=== PATIENT | female | born 1995 | race Caucasian/White ===

== ENCOUNTER 2020-04-02 11:46 | Outpatient (REF) | payer MEDICAID, SELFPAY | END 2020-04-02 11:47 | disposition home or self-care (01) | LOC: HO.LAB 11:46 | PROVIDERS: Visit Provider Internal Medicine | DX: Z20.822 Contact with and (suspected) exposure to COVID-19 (principal) | CPT/HCPCS: 36415; C9803; U0003 ==

== ENCOUNTER 2024-08-08 11:51 | Emergency (ER) | payer MEDICAID, SELFPAY ==
--- NOTE | ~2024-08-08 | US_ITS ---
EXAMINATION: US OBSTETRICAL ULTRASOUND CLINICAL INFORMATION: Left-sided cramping, COMPARISON: Ultrasound of the 11/13/2019 LMP: Unknown. Gestational age by maternal dates is unknown. Estimated date of delivery by maternal dates is unknown. TECHNIQUE: Transabdominal imaging of pelvis is performed. FINDINGS: There is a single intrauterine gestational sac with visible yolk sac, embryo/fetus, and cardiac activity. There is no significant subchorionic hemorrhage or hematoma. HR: 160 beats per minute. CRL (crown rump length): 1.79 cm (8 weeks 2 days +/- 4 days). OSEAS (estimated date of delivery): 03/18/2025 +/- 4 days. MATERNAL ADNEXA: The right maternal ovary measures 3.6 x 2.3 x 2.2 cm. There is anechoic cyst 2.3 x 1.8 x 1.8 cm The left maternal ovary measures 2.7 x 2.2 x 1.8 cm. No focal lesion seen There is no significant maternal adnexal mass. No maternal pelvic ascites. US/US OB <= 14 weeks fetus IMPRESSION: 1. Single intrauterine gestation with ultrasound gestational age of 8 weeks 2 days +/- 4 days. 2. Estimated date of delivery is 03/18/2025 +/- 4 days. 3. No maternal adnexal mass or pelvic ascites. Electronically signed by: Umesh Gonzalez MD 08/08/2024 03:43 PM EDT
[2024-08-08 12:16] VITALS: BP 101/67; PULSE 73; RESP 18; TEMP 36.6; O2SAT 100; BMI 18.9
--- NOTE | 2024-08-08 12:18 | ED_ITS ---
HPI - General Adult General Chief complaint: General Medical Stated complaint: Vomiting, weakness, pt is Time Seen by Provider: 08/08/24 13:47 Source: patient, RN notes reviewed and old records reviewed Mode of arrival: ambulatory History of Present Illness ED Provider: Sofia Sher PA-C [facility] narrative: 28-year-old female presenting to the ED complaining of positive home tests yesterday, left lower quadrant abdominal cramping, nausea, vomiting and generalized fatigue x yesterday. Reports decreased p.o. intake. LMP May. Denies vaginal bleeding / discharge, dysuria / hematuria, flank pain/ back pain, diarrhea. Related Data Home Medications ?Medication ?Instructions ?Recorded ?Confirmed No Known Home Meds 11/12/21 11/12/21 Allergies Allergy/AdvReac Type Severity Reaction Status Date / Time No Known Allergies Allergy Verified 08/08/24 12:19 Review of Systems 2 Review of Systems: Yes all other systems are reviewed and are negative Constitutional: Constitutional: Reports as per [facility] Past Medical History Attestation statement: The following information was validated with the patient. Source: old records reviewed Medical History Depression Social History Social History Household Members: Family Household Members Other:: Father, His , Her 2 kids and Pt's daughter Housing: House Do you presently have visiting nurse or other home services: No Patient Tobacco Use Status: Never used Tobacco Smoked in Last 30 Days: No Use of substances other than those prescribed or required for medical reasons: No Advance Directives: No Advance Directives Information Provided: No service: No Sexual orientation: Straight/Heterosexual Physical Exam ED Vital Signs: Vital Signs - 24 hr 08/08/24 12:16 08/08/24 16:28 08/08/24 16:28 Temperature 97.9 F 99.0 F 99.0 F Pulse Rate 73 74 74 Respiratory Rate 18 16 16 Blood Pressure 101/67 109/73 109/73 Pulse Oximetry 100 100 100 Oxygen Delivery Method Room Air Room Air Room Air BMI result Body Mass Index 18.9 Const General: cooperative, healthy appearing and no acute distress Orientation/consciousness: patient oriented x3 Limitations: no limitations HENMT Head: Yes normal to inspection and Yes atraumatic Ears: hearing grossly normal bilaterally General nose exam: Normal external nose present Face and sinus: Yes normal facial exam Eyes General: appearance normal, both eyes and all related structures EOM: EOMs intact bilaterally Neck Neck: Yes normal visual inspection and Yes no meningeal signs Resp Effort & Inspection: normal respiratory effort and no respiratory distress Auscultation: clear to auscultation bilaterally Cardio Rate: regular rate Heart sounds: S1 normal heart sound present and S2 normal heart sound present GI Inspection: Yes normal to inspection Palpation (GI): Soft to palpation, nontender, no guarding and not rigid General: Yes no CVA tenderness Back/Spine/Pelvis Back: no CVA tenderness Skin Rashes: no rashes Wounds: no wounds Neuro General: patient oriented x3, tone normal and no meningeal signs Cranial nerves: Yes CN's II-XII intact bilaterally Gait exam (Neuro): Normal gait present Extrem General: Yes normal to inspection Course Course Course Narrative: This is a rapid medical exam performed by Paulo Coleman NP: Additional HPI, ROS, PE not included below will be deferred to primary provider. Patient is a 28-year-old female, just found out she is yesterday, LMP sometime in may presenting with complaint of profound weakness, nausea, vomiting, left lower abd cramping since yesterday. Has not had U/S yet. Plan: labs, UA, viral panel, U/S -1554-- no leukocytosis. Labs otherwise reassuring. HCG 192,933 - urine positive for trace ketones and protein. No blood. - viral testing negative US OB <= 14 weeks fetus IMPRESSION: 1. Single intrauterine gestation with ultrasound gestational age of 8 weeks 2 days +/- 4 days. 2. Estimated date of delivery is 03/18/2025 +/- 4 days. 3. No maternal adnexal mass or pelvic ascites. > patient is tolerating p.o. in the ED Results discussed with patient including worrisome signs and symptoms and strict return precautions, and when to return to the emergency department. They verbalized understanding and feel safe for discharge at this time. Medications Administered Discontinued Medications Generic Name Dose Route Start Last Admin Trade Name Freq PRN Reason Stop Dose Admin Sodium Chloride 1,000 mls @ 999 mls/hr 08/08/24 14:00 08/08/24 16:18 Ns IV 08/08/24 15:00 Infused .Q1H1M SUSANNA Infusion Medical Decision Making Medical Decision Making [facility] Narrative: 28-year-old female presenting to the ED complaining of positive home tests yesterday, left lower quadrant abdominal cramping, nausea, vomiting and generalized fatigue x yesterday. On exam vital signs stable, NAD, nontoxic appearing, abdomen is soft nontender, no CVAT. Concern for early vs ectopic vs threatened vs metabolic abnormalities. Rule out UTI. Lower suspicion for renal stones /pyelo, appendicitis or diverticulitis at this time. Unlikely TOA/0 ovarian torsion Plan: Labs, UA, ultrasound, IVF, p.o. trial, re-evaluate Please refer to course for remaining clinical decision making, interpretation of labs/imaging results, and discussions with consultants and/or family members. Differential Diagnosis Differential Diagnoses: The differential diagnosis associated with the presentation includes As above Admission/Observation Consideration of admission/observation: Escalation of care including admission/observation considered Lab Data [facility] Lab Attestation statement: I reviewed the patient's lab results. 08/08/24 14:09 08/08/24 14:09 Labs: Lab Results 08/08/24 08/08/24 08/08/24 Range/Units 13:11 14:09 14:12 WBC 7.1 (4.8-10.8) X10*3/uL RBC 3.90 L (4.20-5.50) X10*6/uL Hgb 12.7 (12.0-16.0) g/dl Hct 36.6 L (37.0-47.0) % MCV 93.8 (80.0-98.0) fL MCH 32.6 (27.0-33.0) pg MCHC 34.7 (31.0-35.0) g/dl RDW 11.9 (11.0-16.0) % Plt Count 244 (160-400) X10*3/uL MPV 8.6 L (9.4-12.3) fL Immature Gran % (Auto) 0.3 (0.0-0.4) % Neut % (Auto) 71.5 (45-73) % Lymph % (Auto) 21.8 (20-40) % Foster % (Auto) 5.4 (2-11) % Eos % (Auto) 0.6 (0-4) % Baso % (Auto) 0.4 (0-2) % Lymph # (Auto) 1.6 (1.2-4.9) X10*3/uL Foster # (Auto) 0.4 (0.1-1.2) X10*3/uL Eos # (Auto) 0.0 (0.0-0.4) X10*3/uL Baso # (Auto) 0.0 (0.0-0.2) X10*3/uL Abs Immat Gran (auto) 0.02 (0.00-0.03) X10*3/uL Absolute Neuts (auto) 5.1 (2.0-8.3) x10*3/uL Absolute Nucleated RBC 0.000 (0.0-0.012) X10*3/uL Nucleated RBC % (auto) 0.0 (0.0-0.2) /100WBC Sodium 136 (135-145) mmol/L Potassium 3.5 (3.3-5.1) mmol/L Chloride 101 (96-108) mmol/L Carbon Dioxide 27 (22-29) mmol/L Anion Gap 12 (12-20) BUN 5 L (9-16) mg/dL Creatinine 0.61 (0.5-1.4) mg/dL Estim Creat Clear Calc 102.8 Estimated GFR > 60 Random Glucose 160 H (60-115) mg/dL Calcium 9.5 (8.4-10.2) mg/dL Magnesium 1.7 (1.6-2.6) mg/dL Total Bilirubin 0.4 (0.0-1.0) mg/dL AST 17 (5-31) U/L ALT 9 (0-31) U/L Alkaline Phosphatase 36 L (39-117) U/L Total Protein 7.1 (6.5-8.0) g/dL Albumin 4.4 (3.5-5.0) g/dL Lipase 13 (8-78) U/L Beta HCG, Quant 470551 mIU/mL Urine Color Yellow Urine Appearance Turbid Urine pH >= 9.0 (5.0-9.0) Ur Specific Jewell 1.020 (1.005-1.025) Urine Protein Trace (Neg-Trace) mg/dL Urine Glucose (UA) Negative (Negative) mg/dL Urine Ketones Trace (Negative) mg/dL Urine Blood Negative (Negative) Urine Nitrite Negative (Negative) Ur Leukocyte Esterase Negative (Negative) Influenza Type A (PCR) NEGATIVE (Negative) Influenza Type B (PCR) NEGATIVE (Negative) RSV RNA Qual (PCR) NEGATIVE (Negative) SARS-CoV-2 RNA (RT-PCR) NEGATIVE (Negative) Independent Interpretation I performed an independent interpretation of an: Ultrasound Radiology Impression Discussion of test interpretation with radiology: I have reviewed the radiologist's reading. External Record Review External record reviewed: Inpatient record, Office record, Outpatient record, Prior outpatient labs, Prior outpatient radiology, Primary care record and Outside ED record Tests considered The following testing was considered but not selected: As above Prescription Management I considered prescription management with: Pain Medication Chronic Conditions Patient?s care impacted by: Other Social Determinants Patient?s care significantly limited by Social Determinants of Health including: Other Social Determinant of Health Discharge Plan Discharge Clinical Impression: Early stage of Patient Disposition: Home, Self-Care Instructions: at 7 to 10 Weeks (ED) Additional Instructions: you are , measuring about 8 weeks and 2 days You need to establish care with an OBGYN. Please start taking vitamins If you develop constant worsening pain, vaginal bleeding or discharge, persistent nausea/ vomiting, passing out episodes, you are unable to eat or drink, fevers return to the ED immediately please follow related rules, no alcohol/ drugs, call your PCP if you are currently on any prescription medication Please see list of local OBGYN providers below: [facility] [place] [phone] [facility] [address] [place] [phone] OBGYN and Midwifery [facility] [address] [phone] [facility] [place] [phone] Prescriptions: No Action No Known Home Meds Interventions: ED Discharge Assessment Last Done: 08/08/24 16:28 Discharge Date/Time: 08/08/24 16:29 Print Language: Czech
[2024-08-08 13:25] LABS: Appearance Urine Turbid; Color Urine Yellow; Glucose Urine UA Negative (Negative); Leukocyte Esterase Urine Negative (Negative); Nitrite Urine Negative (Negative); PH >= 9.0 (5.0-9.0); Urine Blood Negative (Negative); Urine Ketones Trace mg/dL (Negative); Urine Protein Trace mg/dL (Neg-Trace)
--- NOTE | 2024-08-08 13:49 | PC.NURSE ---
Pt does not want lab work drawn.
[2024-08-08 14:17] LABS: MANUAL DIFF FLAG NO
[2024-08-08] MEDS: 0.9 % Sodium Chloride 1,000 ML 999 ML IV (14:17)
[2024-08-08 14:18] LABS: Basophils Percent Auto 0.4 % (0-2); Eosinophils Percent Auto 0.6 % (0-4); Hematocrit 36.6 % (37.0-47.0); Hemoglobin 12.7 g/dl (12.0-16.0); Imm Gran Abs Auto 0.02 X10*3/uL (0.00-0.03); Imm Gran Pct Auto 0.3 % (0.0-0.4); Lymphocytes Absolute Auto 1.6 X10*3/uL (1.2-4.9); Lymphocytes Percent Auto 21.8 % (20-40); Mean Corpuscular HGB Conc 34.7 g/dl (31.0-35.0); Mean Corpuscular Hemoglobin 32.6 pg (27.0-33.0); Mean Corpuscular Volume 93.8 fL (80.0-98.0); Mean Platelet Volume 8.6 fL (9.4-12.3); Monocytes Absolute Auto 0.4 X10*3/uL (0.1-1.2); Monocytes Percent Auto 5.4 % (2-11); Neutrophils Absolute Auto 5.1 x10*3/uL (2.0-8.3); Neutrophils Percent Auto 71.5 % (45-73); Platelet Count 244 X10*3/uL (160-400); Red Cell Distribution Width 11.9 % (11.0-16.0); White Blood Count 7.1 X10*3/uL (4.8-10.8)
[2024-08-08 14:47] LABS: Alanine Aminotransferase 9 U/L (0-31); Albumin Level 4.4 g/dL (3.5-5.0); Alkaline Phosphatase 36 U/L (39-117); Anion Gap 12 (12-20); Aspartate Amino Transferase 17 U/L (5-31); Bilirubin Total 0.4 mg/dL (0.0-1.0); Blood Urea Nitrogen 5 mg/dL (9-16); Calcium 9.5 mg/dL (8.4-10.2); Carbon Dioxide 27 mmol/L (22-29); Chloride 101 mmol/L (96-108); Creatinine Clr Calc Pharmacy 102.8; Estimated Glomerular Filt Rate > 60; Glucose Random 160 mg/dL (60-115); Potassium 3.5 mmol/L (3.3-5.1); Sodium 136 mmol/L (135-145); Total Protein 7.1 g/dL (6.5-8.0)
--- OUTSIDE RECORDS SUMMARY | 2024-08-08 14:57 | XMS_ITS | Encounter Summary ---
Author Organization [facility] Address [address] [place] [phone] Phone Care Team Providers Care [facility] Emergency Services Manager Name Role Phone Unavailable Primary Care Provider Unavailabl e Encounter Details Date Type Department Care Team (Late st Contact Info) Description 01/20/2010 Documentation [facility] [place] [facility] [place] [address] Family Medicine, Physician [address] [place] [address] [phone] Social History Tobacco Use Types Packs/Day Years Used Date Smoking Tobacco: Never Assessed Comments Unknown Sex and Gender Information Value Date Recorded Sex Assigned at Not on file Legal Sex Female 5:22 PM EDT Gender Identity Not on file Sexual Orientation Not on file documented as of this encounter Plan of Treatment Not on file documented as of this encounter Visit Diagnoses Not on filedocumented in this encounter
--- OUTSIDE RECORDS SUMMARY | 2024-08-08 14:57 | XMS_ITS | Clinical Summary ---
Author Organization [facility] Address [address] [place] [phone] Phone Care Team Providers Care Loadmaster Name Role Phone Unavailable Primary Care Provider Unavailabl e Allergies No known active allergies Medications medroxyPROGESTER one 150 MG/ML injection Inject 150 mg into the muscle every 3 (three) months. Active Active Problems No known active problems Immunizations Immunization Administration Dates Next Due DTaP 5 11/14/2001, 9,08/09/1997,04/27,01/25/1997 HPV, Quadrivalent 05/15/2011,03/12/2010,01/10/20 10 Hep A, ped/adol 04/09/2015,11/30/2013 Hep B, ped/adol 08/09/1997,01/25/1997,1996 Hib (PRP-T) 06/17/1998, 8,04/27/1997,01/25 IPV 11/14/2001 Influenza Split 05/04/2011,01/09/2010 Influenza, injectable, quadr ivalent, preservative free 11/30/2013,02/28/2013 MMR 11/14/2001,01/02/1998 Meningococcal Conj (Menactra) MCV4P 04/09/2015,1 OPV 08/09/1997,04/27/1997,01/25/1997 Tdap 01/09/2010 Varicella 11/04/2007,01/02/1998 Family History Medical History Relation Name Comments Thyroid disease Brother 1 Steve No Known Problems Brother 2 Drew Bipolar disorder Brother 3 Gurinder No Known Problems Brother 4 Brandon Thyroid disease Mother Clementina Relation Name Status Comments Brother 1 Steve Alive Brother: adhd, odd, bipolar,asthma, adhd, Asthma Brother 2 Drew Alive Brother 3 Gurinder Alive Brother 4 Brandon Alive Father Dickchristen Alive Father: Alive a nd well Maternal Grandfather Materna l grandfather: drug overdose Mother Clementina Alive Mother: Asthma Paternal Grandmother Alive PGM, un cles, GM: Obesity Sister Gianfranco Alive Sister: Alive a nd well Social History Tobacco Use Types Packs/Day Years Used Date Smoking Tobacco: Never Smokeless Tobacco: Never Comments:Never smoker Alcohol Use Standard Drinks/Week Comments No 0 (1 standard drink = 0.6 oz pur e alcohol) Comments Unknown Sex and Gender Information Value Date Recorded Sex Assigned at Not on file Legal Sex Female 5:22 PM EDT Gender Identity Not on file Sexual Orientation Not on file Last Filed Vital Signs Vital Sign Reading Time Taken Comments Blood Pressure 127/78 11/09/2017 3:25 PM EDT Pulse 96 11/09/2017 3:25 PM EDT Temperature 35.8 ??C (96.5 ??F) 10/09/2016 12:00 AM E DT Respiratory Rate - - Oxygen Saturation - - Inhaled Oxygen Concentration - - Weight 46.4 kg (102 lb 3.2 oz) 11/09/2017 3:25 P M EDT Height 158.1 cm (5' 2.25 ) 11/09/2017 3:25 PM ED T Body Mass Index 18.54 11/09/2017 3:25 PM EDT Plan of Treatment Health Maintenance Due Date Last Done Comments DTaP,Tdap,and Td Vaccines (7 - Td or Tdap) 01/10/2020 01/09/2010, 11/14/2001, 06/17/1998, Additional history exists Influenza Vaccines (#1) 2023 12/01/19 14, 02/28/2013, 05/04/2011, Additional history exists COVID-19 Vaccine ( season) 2023 Hepatitis B Vaccines Completed 08/09/1997, 01/25/1997, 1996 HIB Vaccines Completed 06/17/1998, 07/27, 04/27/1997, Additional history exists IPV Vaccines Completed 11/14/2001, 07/27, 04/27/1997, Additional history exists MMR Vaccines Completed 11/14/2001, 01/02/1998 Varicella Vaccines Completed 11/04/2007, 01/02/1998 HPV Vaccines Completed 05/15/2011, 02/26, 01/09/2010 Hepatitis A Vaccines Completed 04/09/2015, 12/01/19 14 Meningococcal Vaccine Completed 04/09/2015, 010 Men B Vaccine Aged Out No longer elig ible based on patient's age to complete this topic Pneumococcal Vaccine Aged Out No long er eligible based on patient's age to complete this topic Procedures * Due to [place] Wedit law, this organization might not be sharing sensitive test results. Procedure Name Priority Date/Time Associated Diagnosis Comments CHLAMYDIA AND GONORRHEA, AMPLIFIED Routine 11/09/2017 3:45 PM EDT Screening for chlamydial disease from Last 3 Months or Most Recently Relevant to Health Maintenance Results * Due to [place] Wedit law, this organization might not be sharing sensitive test results. * Chlamydia and Gonorrhoea, Amplified (11/09/2017 3:45 PM EDT) Chlamydia Trachomatis, DNA Probe NEGATIVE (NEG) [facility] Comment: No Chlamydia Trachomatis RNA detected in this patient's sample ? (REFERENCE RANGE/NORMAL VALUE: NOT DETECTED) ? Note: This test uses bridge ironworker helper- mediated amplification method to detect rRNA from C. Trachomatis URINE GC AMP PROBE NEGATIVE (NEG) [facility] Comment: No Neisseria Gonorrhoeae RNA detected in this patient's sample ? (REFERENCE RANGE/NORMAL VALUE: NOT DETECTED) ? NOTE: This test uses bridge ironworker helper-mediated amplification method to detect rRNA from N.Gonorrhoeae. A negative result does not preclude infection. In the case of a negative urine result, testing of an endocervical(female) or urethral (male) specimen is recommended if there is high clinical suspicion of infection. Due to very high sensitivity of Nucleic Acid Amplification Test, false positive results may occur. Therefore, specimen handling is extremely important. In patients in whom the disease is unlikely, additional sample for testing should be considered after an initial positive result. The performance characteristics of this test have not been evaluated in children. The Aptima Combo2 assay is not intended for the evaluation of suspected sexual abuse or for other medico-legal indications. The ordering provider should assess if the patient had consensual sex without risk of sexual abuse. Consult the [facility] if needed. Contact phone number . Therapeutic failure or success cannot be determined with the Aptima Combo2 assay since nucleic acid may persist following appropriate antimicrobial therapy. The Centers for Disease Control and Prevention (CDC) recommends confirmatory retesting using culture or a different nucleic acid amplification test when positive results occur, if indicated. Testing performed or reported by [facility], a Service of [facility], [facility] [place] [address] CLIA ??[id number] Delmar Ballesteros MD, PhD, Geophysical Prospector Urine 11/09/2017 3:45 PM EDT 11/09/2017 10:16 PM EDT us Jose Cruz Goldstein MD LAB MICROBIOLOGY - GENERAL OR DERABLES Final Result [facility] from Last 3 Months or Most Recently Relevant to Health Maintenance Insurance [facility] NON P[facility]
--- OUTSIDE RECORDS SUMMARY | 2024-08-08 14:57 | XMS_ITS | Data Portability ---
Author Organization [facility] Address [address] [place] [address] Assessment Encounter Date Assessment Date Assessment LastModified by Organization Details LastModified Time 11/18/2021 11/18/2021 Patient agreed and verbally consents to this audio and video Telehealth appt via a secure platform [email or web address] Not available 11/18/2021 11:33:02 06/19/2024 06/19/2024 Patient agreed and verbally consents to this audio and video Telehealth appt via a secure platform [email or web address] Not available 06/19/2024 10:09:07 Plan of Treatment Reminders Order Date Submit Date Provider Last Modified By Organization Details Last Modified Time Details Appointments ANNUAL EXAM 2024 10:15A M HERRERA ALVAREZ Not available Not available Not available Lab CMP, serum or plasma 2022 023 [facility], [address] [place] [address], [id number], 05/01/2022 06:54:48 CBC w/ auto diff 2022 023 [facility], [address] [place] [address], [id number], 04/02/2022 12:30:47 lipid panel, blood 2022 023 [facility], [address] [place] [address], [id number], 05/04/2022 13:39:20 TSH + free T4, serum 2022 023 [facility], [address] [place] [address], [id number], 04/02/2022 12:30:[address] referral 2024 025 [facility], [address] [place], [id number], 06/20/2024 09:15:20 otolaryng ologist referral 2022 023 [facility], [address] [place], [address], 08/19/2022 15:11:00 Procedures None recorded. Surgeries None recorded. Imaging None recorded. Medication Orders bupropion HCl XL 150 mg 24 hr tablet, extended release 2021 022 [id number], [address], [place], [id number], 06/19/2024 10:11:19 prednison e 10 mg tablet 2020 021 [facility] #39269, [address], [place], [id number], 11/18/2021 11:16:33 Zithromax Z-Tommy 250 mg tablet 2020 021 [facility] #[id number], [address], [place], [phone], 11/18/2021 11:16:42 sertralin e 25 mg tablet 2020 021 [facility] #[id number], [address], [place], [id number], 11/18/2021 11:16:39 Patient TargetsNo targets recorded. Patient Instructions Encounter Date Encounter Id Patient Instructions Last Modified By Organization Details Last Modified Time 11/19/2020 [id number] pulse oximetry* [email or web address] Not available 11/19/2020 14:22:13 Reason for Referral Supervisor Prepress Referral fo r Acute tonsillitis ongoing, two years of tonsilitis, tonsil stones and difficulty swallowing Referring Physician: Lisa Madden, Internal Medicine, Encounter Date: 04/02/2022 Neurologist Referral for Giuseppe jarrett unilateral migraine, 12+ headache days per month Referring Physician: Lisa [facility]en [facility], Encounter Date: 06/19/2024 Results Created Date Observation Date Name Description Value Unit Range Abnormal Flag Note LastModifiedBy Organization Detail LastModifiedTime 11/20/1911/19/2020 pulse oxime try* Result 96 Not Available [facility] [address] [place] [address] [address], [place], [address], 11/19/2020 14:08:40 Result Notes None recorded. Problems Name Problem SNOMED Code Status Onset Date Resolution Date Notes Provider Name and Address Organization Details Recorded Time Asthma 037637939 Completed 201908/29/2019 HERRERA ALVAREZ [address] [place] [address], [phone], [facility] 1 07:11:01 Asthma 594784520 Active 2020 HERRERA ALVAREZ [address] [place] [address], [address], [facility] 1 07:11:00 Urinary incontin ence 678151043 Active 2021 HERRERA ALVAREZ [address] [place] [address], [address], [facility] 2 13:46:26 Adult attentio n deficit hyperact ivity disorder 111561971 Active 2021 HERRERA ALVAREZ [address] [place] [address], [address], [facility] 2 11:19:25 Bipolar disorder 58312286 Active 2021 HERRERA ALVAREZ [address] [place] [address], [address], [facility] 2 11:33:33 Acute tonsilli tis 87817400 Active 2022 HERRERA ALVAREZ [address] [place], [address], [facility] 3 12:16:24 Migraine 35468108 Active 2024 HERRERA ALVAREZ [address] [place], [address], [facility] 5 10:05:52 Problem Notes None recorded. Medical Equipment None Reported. Allergies Allergen ID Allergen Name Allergen Category Reaction Reaction Severity Criticality Documentation Date Start Date Code Code System Note Provider Name and Address Organization Details Recorded Time 3829 amoxicill in medicatio n Not available Not available Not available 08/02/2019 723 [facility] HERRERA ALVAREZ [address] [place], [address], [facility] 0 12:09:29 Medications Name Sig Start Date Stop Date Status Note LastModified by Organization Details LastModified Time buspirone 5 mg tablet 06/19 completed Not Available Not Available Not Available clonidine HCl 0.1 mg tablet 06/19 completed Not Available Not Available Not Available prednisone 10 mg tablet 4 tabs x 3 days 3 tabs x 3 days 2 tabs x 3 days1 tabs x 3 days 11/18 completed Not Available Not Available Not Available Vitamin B-6 25 mg tablet TK 1 T PO TID 10/04 completed Not Available Not Available Not Available trazodone 50 mg tablet TAKE 1 TABLET BY MOUTH EVERY NIGHT AT BEDTIME NEEDED FOR SLEEP 06/19 completed Not Available Not Available Not Available oxybutynin chloride ER 10 mg tablet,exte nded release 24 hr 06/19 completed Not Available Not Available Not Available azithromyci n 250 mg tablet TAKE 2 TABLETS (500 MG) BY ORAL ROUTE ONCE DAILY FOR 1 DAY THEN 1 TABLET (250 MG) BY ORAL ROUTE ONCE DAILY FOR 4 DAYS 11/18 completed Not Available Not Available Not Available prazosin 1 mg capsule 06/19 completed Not Available Not Available Not Available naltrexone 50 mg tablet 06/19 completed Not Available Not Available Not Available metronidazo le 0.75 % (37.5 mg/5 gram) vaginal gel APPLY 1 APPLICATO R VAGINALLY DAILY AT BEDTIME FOR 5 DAYS 06/19 completed Not Available Not Available Not Available hydroxyzine pamoate 50 mg capsule 06/19 completed Not Available Not Available Not Available oxycodone 5 mg/5 mL oral solution TAKE 4 ML BY MOUTH EVERY 6 HOURS NEEDED FOR PAIN 06/19 completed Not Available Not Available Not Available triamcinolo ne acetonide 0.1 % topical cream 06/19 completed Not Available Not Available Not Available cephalexin 500 mg capsule TAKE ONE CAPSULE BY MOUTH THREE TIMES DAILY FOR 7 DAYS 04/02 completed Not Available Not Available Not Available sertraline 25 mg tablet TAKE 1 TABLET BY MOUTH EVERY DAY 11/18 completed Not Available Not Available Not Available hydroxyzine pamoate 25 mg capsule 04/02 completed Not Available Not Available Not Available Vitamin 27 mg iron-0.8 mg tablet TAKE 1 TABLET BY MOUTH EVERY DAY 10/04 completed Not Available Not Available Not Available azithromyci n 500 mg tablet TK 2 TS PO ONCE FOR ONE DOSE 10/04 completed Not Available Not Available Not Available aripiprazol e 5 mg tablet TAKE 1 TABLET BY MOUTH AT BEDTIME 11/18 completed Not Available Not Available Not Available bupropion HCl XL 150 mg 24 hr tablet, extended release TAKE 1 TABLET BY MOUTH EVERY DAY 06/19 completed Not Available Not Available Not Available naloxone 4 mg/actuatio n nasal spray CALL 911. SPR CONTENTS OF ONE SPRAYER (0.1ML) INTO ONE NOSTRIL. REPEAT IN 2-3 MIN IF SYMPTOMS OF OPIOID EMERGENCY PERSIST, ALTERNATE NOSTRILS 04/02 completed Not Available Not Available Not Available Blisovi Fe 04/17 (28) 1 mg-20 mcg (21)/75 mg (7) tablet TAKE 1 TABLET BY MOUTH EVERY DAY 11/18 completed Not Available Not Available Not Available BinaxNOW COVID-19 Ag Self Test kit TEST DIRECTED TODAY 04/02 completed Not Available Not Available Not Available Vitals Date Recorded Body height Body mass index (BMI) Body weight Oxygen saturation Oxygen saturation in Arterial blood by Pulse oximetry Heart rate Systolic blood pressure Diastolic blood pressure Provider Name and Address Organization Details Last Updated DateTime 1 158.75 cm 18.4 kg/m2 48853.4 2 g 99 % 99 % 72 /min 100 mm[Hg] 62 mm[Hg] Shirlene Connelly [facility] 1 14:03:59 Date Recorded Body height Body mass index (BMI) Body weight Oxygen saturation Oxygen saturation in Arterial blood by Pulse oximetry Heart rate Systolic blood pressure Diastolic blood pressure Provider Name and Address Organization Details Last Updated DateTime 1 158.75 cm 17.6 kg/m2 65132.3 3 g 96 % 96 % 94 /min 100 mm[Hg] 80 mm[Hg] Ruthie Amrki [facility] 1 14:15:21 Date Recorded Body height Body mass index (BMI) Body weight Heart rate Systolic blood pressure Diastolic blood pressure Provider Name and Address Organization Details Last Updated DateTime 3 160.66 cm 20.9 kg/m2 88583.7 7 g 88 /min 98 mm[Hg] 66 mm[Hg] Maria Ines Carreon [facility] 3 11:54:57 Social History Question Answer Notes LastModified by Organizat ion Details LastModified Time Tobacco Smoking Status Never Smoker [facility]/02[facility]2022 11:52:17 What Was The Date Of Your Most Recent Tobacco Screening? 04/02/2022 [email or web address] Information not available 04/02/2022 Sex: Unknown Functional Status None recorded. Mental Status None recorded. Family History Relationship Description Onset Age of this Age Resolved Age Notes LastModified by Organization Details LastModified Time Brother Bipolar disorder [email or web address] Not available 2019 11:27:49 Brother Disorder of thyroid gland tbalicki Not available 2019 11:28:25 Mother Disorder of thyroid gland tbalicki Not available 2019 11:28:25 Paternal Grandmother Asthma [email or web address] Not available 2019 12:05:23 Father Asthma [email or web address] Not available 04/2019 12:05:23 Medical History No medical history recorded. Gynecological History Statement/Question Response Date of LMP 08/07/2019 Obstetrics History GPAL:G 0 P 0 0 0 0 Immunizations Vaccine Type Date Status Note Provider Nam e and Address Organization Details Recorded Time COVID-19 vaccine, vector-nr, rS-ChAdOx1, PF, 0.5 mL 10/27/2020 [facility] 11/19/2020 14:13:24 Hep B, unspecified formulation 1996 completed Hoa Manzanares [facility] 08/02/2019 11:19:32 Hep B, unspecified formulation 01/25/1997 completed [facility]/02/2019 11:19:40 Hep B, unspecified formulation 08/09/1997 completed Hoa [facility] 08/02/2019 11:19:52 MMR 01/02/1998 completed Hoa Manzanares [facility] 08/02/2019 11:20:13 MMR 11/14/2001 [facility]/02/2019 11:20:30 meningococcal, unknown serogroups 01/09/2010 completed Hoa [facility]ozano[facility] 08/02/2019 11:20:58 meningococcal, unknown serogroups 04/09/2015 completed Hoa Manzanares [facility] 08/02/2019 11:21:10 Tdap 01/09/2010 completed Hoa Manzanares [facility] 08/02/2019 11:21:32 varicella 01/02/1998 [facility] 08/02/2019 11:21:56 varicella 11/04/2007 completed [facility] 08/02/2019 11:22:06 Past Encounters Encounter ID Performer Location Encounter Start Date Encounter Closed Date Diagnosis/Indication Diagnosis SNOMED-CT Code Diagnosis ICD10 Code Diagnosis Note [id number] Paul Ibrahim DO [facility] [address] [facility] [address] 08/29/2019 11:42:33 08/29/2019 13:31:20 Adult health examination 328864066 Z00.00 patient is in need of a rn gynecology, required by insurance for a referral Hearing loss 61834197 H9 1.91 will refer to ENT and have a hearing test performed [id number] Paul Ibrahim DO [facility] [address] [facility],[place] [address] 10/04/2020 13:59:00 10/04/2020 16:16:51 state 78226964 Z39.2 will set up with sertraline and [place] fu with [place] [id number] Paul Ibrahim DO [facility] [address] [facility] [address] 11/19/2020 14:04:52 11/19/2020 14:44:32 Asthma 134270518 J45.909 have an acute asthma exacerbati on Acute exac erbation of asthma 504991479 J45.901 start on pred and z tommy [id number] HERRERA ALVAREZ [facility] [address] [facility],[place] [address] 11/18/2021 08:00:09 11/18/2021 11:52:36 Adult attention deficit hyperactivity disorder 204880369 F90.0 fu in three weeks, appt scheduled [id number] Paul Ibrahim [facility] [address] [facility] [address] 04/02/2022 11:45:26 04/03/2022 08:24:10 Active or passive immunization 026139680 Z23 advised Adult heal th examination 373656267 Z00.00 patient is in need of a rn gynecology, required by insurance for a referral Acute tonsillitis 311016 08 J03.80 will fu with ENT [id number] Paul Ibrahim DO [facility] [address] [facility] [address] 06/19/2024 08:33:29 06/19/2024 10:24:45 Migraine 60015271 G43.009 recommende d neuro referral for further eval Adult atte ntion deficit hyperactivity disorder 024516359 F90.0 stable per pt Bipolar disorder 2530220 4 F31.73 stable Health Concerns Section Related Observation LastModified by Organization Detai ls LastModified Time None Recorded Concern Status LastModified by Organization Details LastModified Time None Recorded Advance Directives Directive None Recorded Payers Encounter Date Sequence Insurance Name Policy Number Policy Haji Covered Member ID Haji Member ID Guarantor Name 10/04/2020 1 [place] 20[place] - [facility] GENER[facility]ED [facility] (MEDICAID) Tamra L Stubbs [id number] Tamra Stubbs 11/19/2020 1 [place] [employer] [place] Tamra L Stubbs [id number] Tamra Stubbs 11/18/2021 1 [place] - [facility] GENER[facility]ED [facility] (MEDICAID) Tamra L Stubbs [id number] Tamra Stubbs 04/02/2022 1 [place] 20[place] - [facility] (MEDICAID) Tamra L Stubbs [id number] Tamra Stubbs 06/19/2024 1 [place] Tamra Stubbs [id number] Tamra Stubbs Notes Date Note Type Note Provider Name a nd Address Organization Details Recorded Time 1 text/html c/o post- depression the patient reports that she has a friend who works with post- questionnaire and scored high the patient reports she is depressed, the patient reports she feels guilt over her regret over having the baby feels she was pushed into the decision by her family and the father of the baby all of which who are not helping out with her or the baby 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 but her ex boyfriend is reluctant to take care of their child discussed options of medications and what to do in terms of psych help HERRERA ALVAREZ [address] [place] [address], [place], [address], [facility] 10/04/2020 14:15:28 text/html c/o asthma exacerbation the patient reports that she developed cough, wheezing since a few weeksthe patient reports that she talked to her supervising staff nurse, checked her lungs and told her to fu here due to wheezing diffusely throughout her lungs today the patient has exp wheezing and dry cough, sob at rest and worse with exertion the patient reports she did test negative for COVID twice, gave the results to the office which were scanned in the patient has history of childhood asthmapossible worsening with poor air quality and environmental triggers the patient is not a smoker HERRERA ALVAREZ [address] [place], [address], [facility] 11/20/2020 07:11:45 2 text/html c/o adult ADHD tele-med phone callpatient consents to phone call patient reports difficulty concentrating at work and during her day-to-day lifeshe reports her focus changes, hard to stick to one task without getting distracted with another reports she feels her motivation decreases because she is having a hard time completing tasks will start on bupropion and fu in three weeks with med checkshe will call sooner if she develops side effects HERRERA ALVAREZ [address] [place], [address], [facility] 11/18/2021 11:33:40 3 text/html Annual WellnessReported bypatient.Diet and Nutrition:healthy diet; discussed vitamin and supplement use; discussed portion control; discussed maintaining calcium balance; discussed diet improvement Fracture Risk:no history of fractures; no recent explained fracture; no sudden unexplained fractures; no previous musculoskeletal injuries Physical Activity:exercises on a regular basis; recent increase in physical activity; good physical condition; discussed weightbearing activities; discussed exercise habits Additional Lifestyle Factors:no tobacco use; drinks alcohol (mild-moderate) Depression Risk:never feels sad, empty, or tearful; no loss of interest in activities; no significant changes in weight; no sleep disturbances or insomnia; no agitation; no loss of energy; no feelings of worthlessness or guilt; no thoughts of suicide; no history of depression; no history of mood disorders Hearing:no loss of hearing Vision:no vision problems asthma: stable urinary incontinence: seeing urologyros f/u with them about the MRI that she was supposed to get HERRERA ALVAREZ [address] [place], [address], [facility] 04/02/2022 12:29:58 5 text/html HeadacheReported bypatient.Location:un ilateral; frontal; temporal Quality:not the worst headache ever; similar to previous headaches;aching;thro bbing;tightness Severity:moderate Duration:intermittent episodes lasting:; 10-15 days/month Onset/Timing:worse; still present Context:not related to trauma Aggravating factors:loud noise; visual stimuli or light Alleviating factors: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; laying in a dark room; occasionally sometimes symptoms do not rossi with OTC meds Associated Symptoms:nausea;photo phobiaNotes:ADHD: off all her medication currently, seems to be doing wellbipolar d/o: patient seems very clear, good judgement Aox3, did attend a program in the [facility] about 3 years agono currently on any medications, symptoms are controlled currently med list reviewed The patient is participating in this appointment via telemedicine communication with a phone call/video calling service ([employer])The patient consents to use of these platforms in place of an in-person appointment due to either sick symptoms the patient is presenting with or current office closure due to COVID exposure in order to keep our office staff and patients safe HERRERA ALVAREZ [address] [place] [address], [place], [address], [facility] 06/19/2024 10:14:22 OBGyn Episode No OBEpisode recorded.
--- OUTSIDE RECORDS SUMMARY | 2024-08-08 14:57 | XMS_ITS | Encounter Summary ---
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 Name Role Phone Unavailable Primary Care Provider Unavailabl e Encounter Details Date Type Department Care Team ([facility] st Contact Info) Description 11/12/2016 Conversion Encounter [facility] - [address] [address] Social History Tobacco Use Types Packs/Day Years Used Date Smoking Tobacco: Never Comments:Never smoker Comments Unknown Sex and Gender Information Value Date Recorded Sex Assigned at Not on file Legal Sex Female 5:22 PM EDT Gender Identity Not on file Sexual Orientation Not on file documented as of this encounter Plan of Treatment Not on file documented as of this encounter Visit Diagnoses Not on filedocumented in this encounter
--- OUTSIDE RECORDS SUMMARY | 2024-08-08 14:57 | XMS_ITS | Encounter Summary ---
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
[2024-08-08 14:59] LABS: Lipase 13 U/L (8-78); Magnesium 1.7 mg/dL (1.6-2.6)
[2024-08-08 15:01] LABS: Influenza A PCR NEGATIVE (Negative); Influenza B PCR NEGATIVE (Negative); Resp Syncy Virus RNA Qual PCR NEGATIVE (Negative); SARS COV2 PCR INHOUSE NEGATIVE (Negative)
[2024-08-08 15:36] LABS: HCG Quantitative 192933 mIU/mL
[2024-08-08 16:28] VITALS: BP 109/73; PULSE 74; RESP 16; TEMP 37.2; O2SAT 100
== END 2024-08-08 16:29 | disposition home or self-care (01) ==
PROVIDERS: Physician Assistant; Registered Nurse Emergency; Emergency Provider Emergency Medicine; PCP Internal Medicine
DX: O26.891 Other specified pregnancy related conditions, first trimester (principal); R10.32 Left lower quadrant pain; R11.2 Nausea with vomiting, unspecified; Z3A.08 8 weeks gestation of pregnancy; Z03.818 Encounter for observation for suspected exposure to other biological agents ruled out
CPT/HCPCS: 0241U; 76801; 80053; 81003; 83690; 83735; 84702; 85025; 96360; 96361; 99284

== ENCOUNTER → 2024-08-08 12:20 | Outpatient (BNV) | payer MEDICAID, SELFPAY | PROVIDERS: Emergency Provider Emergency Medicine; PCP Internal Medicine; Visit Provider Radiology Diagnostic Radiology | DX: O26.891 Other specified pregnancy related conditions, first trimester (principal); R25.2 Cramp and spasm; Z3A.08 8 weeks gestation of pregnancy | CPT/HCPCS: 76801 ==

== ENCOUNTER 2025-01-24 12:35 | Emergency (ER) | payer MEDICAID, SELFPAY ==
[2025-01-24 13:03] VITALS: BP 111/57; PULSE 84; RESP 18; TEMP 36.3; O2SAT 100; BMI 21.8
--- NOTE | 2025-01-24 13:03 | ED.GENADULT ---
HPI - General Adult General Chief complaint: OB Stated complaint: preg+ vaginal discharge, sob Time Seen by Provider: 01/24/25 13:35 Source: patient Mode of arrival: EMS Limitations: no limitations History of Present Illness HPI narrative: This is 29 yo 32 weeks gestation presented to the emergency department complaining of abdominal cramps nausea poor p.o. intake cough. She is ambulatory to the emergency depart Onset (ago): hour(s) (1) Radiation: non-radiation Severity: mild Pain Consistency: constant Relieving factors: none Exacerbating factors: none Associated symptoms: denies other symptoms Related Data Home Medications ?Medication ?Instructions ?Recorded ?Confirmed No Known Home Meds 11/12/21 11/12/21 Allergies Allergy/AdvReac Type Severity Reaction Status Date / Time No Known Allergies Allergy Verified 01/24/25 13:08 Review of Systems Constitutional: Constitutional: Reports no additional constitutional complaints ENT: Reports system reviewed and no additional complaints, except as documented Genitourinary: Genitourinary: Reports as per [facility] Past Medical History Attestation statement: The following information was validated with the patient. Medical History Depression Social History Social History Household Members: Family Household Members Other:: Father, His , Her 2 kids and Pt's daughter Housing: House Do you presently have visiting nurse or other home services: No Patient Tobacco Use Status: Never used Tobacco Advance Directives: No Advance Directives Information Provided: Yes service: No Sexual orientation: Straight/Heterosexual Physical Exam ED Exam Exam: No acute distress Vital Signs: Vital Signs - 24 hr 01/24/25 13:03 01/24/25 14:09 Temperature 97.4 F 97.4 F Pulse Rate 84 84 Respiratory Rate 18 18 Blood Pressure 111/57 L 111/57 L Pulse Oximetry 100 100 Oxygen Delivery Method Room Air Room Air BMI result Body Mass Index 21.8 Const General: cooperative Nutritional Appearance: average body habitus Orientation/consciousness: patient oriented x3 Limitations: no limitations HENMT Head: Yes normal to inspection Ears: hearing grossly normal bilaterally General nose exam: Normal external nose present Face and sinus: Yes normal facial exam Mouth: Normal oral and palatal mucosa present Neck Neck: Yes normal visual inspection Chest Chest palpation & inspection: normal inspection of the chest Resp Effort & Inspection: normal respiratory effort Auscultation: clear to auscultation bilaterally Cardio Jugular venous distension: no JVD Rate: regular rate GI Inspection: Yes normal to inspection Palpation (GI): Soft to palpation Auscultation: normal bowel sounds Other: With speculum examination was done and manual exam done she is not dilated Skin General skin exam: no rashes or lesions noted Lesions: no lesions Rashes: no rashes Neuro General: patient oriented x3 Course Course Course Narrative: 29 yo F 32 week , nasal congestion, shortness of breath, coughing for 3 days. Doctor sent her here for evaluation. Contractions 9 minutes apartment. Does not think water is broken, + movement. Carldiego Venegas Wiley, DO 01/24/25 1304 Reevaluation(s) Reevaluation #1: call placed to [facility] waiting for call back Time: 13:29 Reevaluation #2: #2 call placed to [facility] transfer waiting for call back from OBGYN Time: 13:41 Reevaluation #3: Accepted to [facility], patient is refusing IV she is refusing blood work Medical Decision Making Medical Decision Making [facility] Narrative: This is a verduzco with a 29 years old 32 weeks gestation I obtain heart rate of 152 a bedside ultrasound the baby is moving okay 13:30 a call was placed to [facility] for transfer Differential Diagnosis Differential Diagnoses: The differential diagnosis associated with the presentation includes Labor/abdominal pain Admission/Observation Consideration of admission/observation: Escalation of care including admission/observation considered Lab Data [facility] Lab Attestation statement: I reviewed the patient's lab results. Labs: Lab Results 01/24/25 Range/Units 13:34 COVID-19 (JUSTINE) Negative (Negative) COVID-19 Clin Com See Note Influenza Type A (MICHELINE) Negative (Negative) Influenza Type B (MICHELINE) Negative (Negative) Influenza A & B Note See Note Critical Care Time Critical Care Time Critical Care Time: Yes Total Critical Care Time: 60 Attestation: Third trimester with the abdominal pain arranging transfer to [facility] for monitoring Discharge Plan Discharge Clinical Impression: Abdominal pain during Patient Disposition: er Acute Care Hospital Transfer Details: need monitoring Prescriptions: No Action No Known Home Meds Referrals: Paul Ibrahim MD [Primary Care Provider, Internal Medicine] Senthil Moreno MD [Physician, Internal Medicine] Interventions: Acute Care Transfer Worksheet (ED) Last Done: 01/24/25 14:09 Discharge Date/Time: 01/24/25 14:11 Print Language: Sri Lankan
--- NOTE | 2025-01-24 13:28 | PC.NURSE ---
hr 154
--- NOTE | 2025-01-24 13:41 | PC.NURSE ---
patient refusing further lab work, attempting to give urine sample. provider reaching out to [facility] for OB transfer. patient states her water has not broken yet and that she thinks her contractions are 7-9 mins apart. states she has been feeling congested w/ a cough for the past few days. agreeable to swabs.
[2025-01-24 13:57] LABS: COVID-19 Test Negative (Negative); IDNOW Serial# 58CA691E
[2025-01-24 13:58] LABS: IDNOW Serial# 55D5AD1C; Influenza B2 Negative (Negative)
--- NOTE | 2025-01-24 14:01 | PC.NURSE ---
Attempting to call nurse to nurse report to [facility] at this time.
--- NOTE | 2025-01-24 14:07 | PC.NURSE ---
Called [facility] to give nurse to nurse report. Report given to nurse, stated her name was Margie.
[2025-01-24 14:09] VITALS: BP 111/57; PULSE 84; RESP 18; TEMP 36.3; O2SAT 100
--- OUTSIDE RECORDS SUMMARY | 2025-01-24 17:20 | XMS_ITS | Clinical Summary ---
Author Organization [facility] Address [address] [place] [address] Phone Care Team Providers Care Quality Assurance Advisor Name Role Phone Unavailable Primary Care Provider [...] 96 11/09/2017 3:25 PM EDT Temperature 35.8 C (96.5 F) 10/09/2016 12:00 AM EDT Respiratory Rate - - Oxygen Saturation - [...] 06/17/1998, Additional history exists Influenza Vaccines (#1) 2024 12/01/19 14, 02/28/2013, 05/04/2011, Additional history exists COVID-19 Vaccine ( season) 2024 Hepatitis B Vaccines Completed 08/09/1997, 01/25/1997, 1996 [...] complete this topic Procedures * Due to [place] [employer] law, this organization might not be sharing sensitive test results. Procedure Name Priority Date/Time Associated Diagnosis Comments CHLAMYDIA AND GONORRHEA, AMPLIFIED Routine 11/09/2017 3:45 PM EDT Screening for chlamydial disease from Last 3 Months or Most Recently Relevant to Health Maintenance Results * Due to [place] [employer] law, this organization might not be sharing sensitive test results. * Chlamydia and Gonorrhoea, Amplified (11/09/2017 3:45 PM EDT) Chlamydia Trachomatis, DNA Probe NEGATIVE (NEG) [facility] Comment: No Chlamydia Trachomatis RNA detected in this patient's sample (REFERENCE RANGE/NORMAL VALUE: NOT DETECTED) Note: This test uses signals analyst- mediated amplification method to detect rRNA from C. Trachomatis URINE GC AMP PROBE NEGATIVE (NEG) [facility] Comment: No Neisseria Gonorrhoeae RNA detected in this patient's sample (REFERENCE RANGE/NORMAL VALUE: NOT DETECTED) NOTE: This test uses signals analyst-mediated amplification method to detect rRNA from N.Gonorrhoeae. [...] without risk of sexual abuse. Consult the [facility] if needed. Contact phone number . Therapeutic failure or success cannot be determined with the Aptima Combo2 assay since nucleic acid may persist following appropriate antimicrobial therapy. The Centers for Disease Control and Prevention (CDC) recommends confirmatory retesting using culture or a different nucleic acid amplification test when positive results occur, if indicated. Testing performed or reported by [facility], a Service of [facility], [facility] [place] [address] [place] [id number] Delmar Ballesteros MD, PhD, Mechanical Engineering Advisor Urine 11/09/2017 3:45 PM EDT 11/09/2017 10:16 PM EDT us Jose Cruz Goldstein MD LAB MICROBIOLOGY - GENERAL OR DERABLES Final Result [facility] from Last 3 Months or Most Recently Relevant to Health Maintenance [facility]
--- OUTSIDE RECORDS SUMMARY | 2025-01-24 17:20 | XMS_ITS | Encounter Summary ---
Author Organization [facility] Address [address] [place] [address] Phone Care Team Providers Care Review Coordinator Name Role Phone Unavailable Primary Care Provider Unavailabl e Encounter Details Date Type Department Care Team (Late st Contact Info) Description 01/20/2010 Documentation [facility] [address] Family Medicine, Physician [address] [place] [address] [phone] Social History Tobacco Use Types Packs/Day Years [...]
--- OUTSIDE RECORDS SUMMARY | 2025-01-24 17:20 | XMS_ITS | Data Portability ---
Author Organization [facility] Telehealth Patient Home Address [address] [place] [address] Assessment Encounter Date Assessment Date Assessment LastModified [...] Organization Details Last Modified Time Details Appointments None recorded. Lab CMP, serum or plasma 2022 023 [facility], [address] [place] [address], [address], 3 06:54:48 CBC w/ auto diff 2022 023 [facility], [address] [place] [address], [address], 3 12:30:47 lipid panel, blood 2022 023 [facility], [address] [place] [address], [address], 3 13:39:20 TSH + free T4, serum 2022 023 [facility], [address] [place] [address], [address], 3 12:30:46 Referral neurologis t referral 2024 025 [facility] Scheduling, [address] [place], [address], 5 09:15:20 otolaryngo logist referral 2022 023 [facility], [address] [place], [address], 3 15:11:00 Procedures None recorded. Surgeries None recorded. Imaging None recorded. Medication Orders bupropion HCl XL 150 mg 24 hr tablet, extended release 2021 022 [id number], [facility] [place], [place], [id number], 5 10:11:19 prednisone 10 mg tablet 2020 021 [id number], [address] [place], [place], [id number], 2 11:16:33 Zithromax Z-Tommy 250 mg tablet 2020 021 [facility] #[id number], [facility] [place], [place], [id number], 2 11:16:42 sertraline 25 mg tablet 2020 021 [facility] #[id number], [facility] [place], [place], [id number], 2 11:16:39 Patient TargetsNo targets recorded. 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 Referral fo r Acute tonsillitis ongoing, two years of tonsilitis, tonsil stones and difficulty swallowing Referring Physician: Lisa Madden, Internal Medicine, Encounter Date: 04/02/2022 Neurologist Referral for Giuseppe jarrett unilateral migraine, 12+ headache days per month Referring Physician: Lisa Madden, Internal Medicine, Encounter Date: 06/19/2024 Results Created Date Observation Date Name Description Value Unit Range Abnormal Flag Note LastModifiedBy Organization Detail LastModifiedTime 11/20/1911/19/2020 pulse oxime try* Result 96 Not Available [facility] Internal Medicine [address] [facility] [address], [place], [address], 11/19/2020 14:08:40 08/09/1908/08/2024 mary beth NAVARRO No observ ation record ed. [email or web address] [facility] (Medical Records) [address] [facility], [place], [address], 08/09/2024 08:30:32 Result Notes None recorded. Problems Name Problem SNOMED Code Status Onset Date Resolution Date Notes Provider Name and Address Organization Details Recorded Time Asthma 155737945 Completed 201908/29/2019 HERRERA ALVAREZ [address] [place] [address], [address], [facility] 1 07:11:01 Asthma 885923824 Active 2020 HERRERA ALVAREZ [address] [place], [address], [facility] 1 07:11:00 Urinary incontin ence 890630604 Active 2021 HERRERA ALVAREZ [address] [place], [address], [facility] 2 13:46:26 Adult attentio n deficit hyperact ivity disorder 071569808 Active 2021 HERRERA ALVAREZ [address] [place], [address], [facility] 2 11:19:25 Bipolar disorder 33986878 Active 2021 HERRERA ALVAREZ [address] [place], [address], [facility] 2 11:33:33 Acute tonsilli tis 76174292 Active 2022 HERRERA ALVAREZ [address] [place], [address], [facility] 3 12:16:24 Migraine 42575674 Active 2024 HERRERA ALVAREZ [address] [place], [address], [facility] 5 10:05:52 Problem Notes None recorded. Medical Equipment None Reported. Allergies Allergen ID Allergen Name Allergen Category Reaction Reaction Severity Criticality Documentation Date Start Date Code Code System Note Provider Name and Address Organization Details Recorded Time 3829 amoxicill in medicatio n Not available Not available Not available 08/02/2019 723 RxNorm HERRERA ALVAREZ [address] [place], [address], [facility] 0 12:09:29 Medications Name Sig [...] index (BMI) Body weight Heart rate Systolic And Diastolic Provider Name and Address Organization Details Last Updated DateTime 04/02/2022 160.66 cm 20.9 kg/m2 25126.77 g 88 /min 98/66 mm[Hg] Maria Ines Carreon [facility] 04/02/2022 11:54:57 Date Recorded Body height Body mass index (BMI) Body weight Oxygen saturation Oxygen saturation in Arterial blood by Pulse oximetry Heart rate Systolic And Diastolic Provider Name and Address Organization Details Last Updated DateTime 1 158.75 cm 18.4 kg/m2 35179.4 2 g 99 % 99 % 72 /min 100/62 mm[Hg] Shirlene Namrich [facility] 14:03:59 Date Recorded Body height Body mass index (BMI) Body weight Oxygen saturation Oxygen saturation in Arterial blood by Pulse oximetry Heart rate Systolic And Diastolic Provider Name and Address Organization Details Last Updated DateTime 1 158.75 cm 17.6 kg/m2 74256.3 3 g 96 % 96 % 94 /min 100/80 mm[Hg] Ruthie Rowley [facility] 14:15:21 Social History Question Answer Notes LastModified by Organizat ion Details LastModified Time Tobacco Smoking Status Never Smoker Maria Ines [facility] 04/02/2022 11:52:17 What Was The Date Of [...] rS-ChAdOx1, PF, 0.5 mL 10/27/2020 completed Ruthie Rowley [facility] 11/19/2020 14:13:24 Hep B, unspecified formulation 1996 [facility] 08/[facility] 11:19:32 Hep B, unspecified formulation 01/25/1997 completed [facility] 08/02/2019 11:19:40 Hep B, unspecified formulation 08/09/1997 completed Hoa [facility]icki [facility] 08/02/2019 11:19:52 MMR 01/02/1998 completed Hoa Balicki [facility] 08/02/2019 11:20:13 MMR 11/14/2001 completed Hoa Balicki [facility], [facility] 08/02/2019 11:20:30 meningococcal, unknown serogroups 01/09/2010 completed [facility] 08/02/2019 11:20:58 meningococcal, unknown serogroups 04/09/2015 completed [facility] 08/02/2019 11:21:10 Tdap 01/09/2010 completed Hoa Balicki null, [facility] 08/02/2019 11:21:32 varicella 01/02/1998 completed Hoa Balicki null, [facility] 08/02/2019 11:21:56 varicella 11/04/2007 [facility] 08/02/2019 11:22:06 Past Encounters Encounter ID Performer Location Encounter Start Date Encounter Closed Date Diagnosis/Indication Diagnosis SNOMED-CT Code Diagnosis ICD10 Code Diagnosis IMO Codes Diagnosis Note [id number] Paul Ibrahim [facility] Internal Medicine [address] [facility],Lynn Humphrey [place] [address] 08/29/2019 11:42:33 08/29/2019 13:31:20 Adult health examination 074623926 Z00.00 patient is in need of a science professor, required by insurance for a referral Hearing loss 91866383 H9 1.91 will refer to ENT and have a hearing test performed [id number] Paul Ibrahim DO [facility] Internal Medicine [address] [facility] [address] 10/04/2020 13:59:00 10/04/2020 16:16:51 state 53206466 Z39.2 will set up with sertraline and will fu with [place] ask [place] [id number] Paul Ibrahim DO [facility] Internal Medicine [address] [facility] [place] [address] 11/19/2020 14:04:52 11/19/2020 14:44:32 Asthma 156463811 J45.909 have an acute asthma exacerbati on Acute exac erbation of asthma 614597874 J45.901 start on pred and z tommy [id number] HERRERA ALVAREZ [facility] Internal Medicine [address] [facility], [place] [facility] [place] [address] 11/18/2021 08:00:09 11/18/2021 11:52:36 Adult attention deficit hyperactivity disorder 049557525 F90.0 fu in three weeks, appt scheduled [id number] Paul Ibrahim DO [facility] Internal Medicine [address] [facility], [address] [facility] [address] 04/02/2022 11:45:26 04/03/2022 08:24:10 Active or passive immunization 932463100 Z23 advised Adult [facility] th examination 283524867 Z00.00 patient is in need of a science professor, required by insurance for a referral Acute tonsillitis 853599 08 J03.80 will fu with ENT [id number] Paul Ibrahim DO [facility] Internal Medicine [address] [facility], [facility] [facility] [place] [address] 06/19/2024 08:33:29 06/19/2024 10:24:45 Migraine 93132761 G43.009 recommende d neuro referral for further eval Adult atte ntion deficit hyperactivity disorder 004273147 F90.0 stable per pt Bipolar disorder 6263335 4 F31.73 stable Health Concerns Section Related Observation LastModified by Organization Detai ls LastModified Time None Recorded Concern Status LastModified by Organization Details LastModified Time None Recorded Advance Directives Directive None Recorded Payers Insurance Date Sequence Insurance Name Policy Number Policy Haji Covered Member ID Haji Member ID Guarantor Name 06/19/2024 1 [place] PRIOR TO 2022 - [facility] (MEDICAID) Tamra L Stubbs [id number] Tamra Stubbs 11/04/2024 1 [place] [facility] Tamra L Stubbs [id number] Tamra Stubbs 06/19/2024 1 [place] [facility] Tamra L Stubbs [id number] Tamra Stubbs Notes Date Note Type Note Provider Name and Address Organization Details Recorded Time 1 text/html ROS as noted in the HPI c/o post- depression the patient reports that [...] her or the 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 11/20/2020 07:11:45 2 text/html ROS as noted in the HPI c/o adult ADHD tele-med phone callpatient consents [...] she develops side effects HERRERA ALVAREZ [address] [place], [address], [facility] 11/18/2021 11:33:40 3 text/html Annual WellnessReported by PatientSocial/Behaviora l HistoryFor diet and nutrition, patient reportshealthy diet,discussed vitamin and supplement use,discussed portion control,discussed maintaining calcium balance, anddiscussed diet improvement. For fracture risk, patient reportsno history of fractures,no recent explained fracture,no sudden unexplained fractures, andno previous musculoskeletal injuries. For physical activity, patient reportsexercises on a regular basis,recent increase in physical activity,good physical condition,discussed weightbearing activities, anddiscussed exercise habits. For additional lifestyle factors, patient reportsno tobacco useanddrinks alcohol (mild-moderate).Mental Status:For depression risk, patient reportsnever feels sad, empty, or tearful,no loss of interest in activities,no significant changes in weight,no sleep disturbances or insomnia,no agitation,no loss of energy,no feelings of worthlessness or guilt,no thoughts of suicide,no history of depression, andno history of mood disorders.Functional AbilityFor hearing, patient reportsno loss of hearing. For vision, patient reportsno vision problems. asthma: stable urinary incontinence: seeing urologyros f/u with them about the MRI that she was supposed to get HERRERA ALVAREZ [address] [place], [address], [facility] Medicine 04/02/2022 12:29:58 5 text/html HeadacheReported by PatientHPIFor quality, patient reportsaching,throbbing , andtightnessbut reportsnot the worst headache everandsimilar to previous headaches. For onset/timing, patient reportsworsebut reportsstill present. For associated symptoms, patient reportsnauseaandphotoph obia. For location, patient reportsunilateral,front al, andtemporal. For severity, patient reportsmoderate. For duration, patient reportsintermittent episodes lasting:oht43-49 days/month. For context, patient reportsnot related to trauma. For aggravating factors, patient reportsloud noiseandvisual stimuli or light. For alleviating factors, patient reportsotc medicationandlaying in a dark room(occasionally sometimes symptoms do not rossi with otc meds).ADHD: off all her medication currently, seems to be doing wellbipolar d/o: patient seems very clear, good judgement Aox3, did attend a program in the [facility] about 3 years agono currently on any medications, symptoms are controlled currently med list reviewedROS as noted in the HPI The patient is participating in this appointment via telemedicine communication with a phone call/video calling service ([employer])The patient consents to use of these platforms in place of an in-person appointment due to either sick symptoms the patient is presenting with or current office closure due to COVID exposure in order to keep our office staff and patients safe HERRERA ALVAREZ [address] [place] [address], [place], [address], [facility] 06/19/2024 10:14:22 OBGyn Episode No OBEpisode recorded.
--- OUTSIDE RECORDS SUMMARY | 2025-01-24 17:20 | XMS_ITS | Encounter Summary ---
Author Organization [facility] Address [address] [facility] [address] [place] [address] Phone Care Team Providers Care House Manager Name Role Phone Valery Barbosa MD Unavailable Paul Ibrahim DO Primary Care Provider [phone] Paul Ibrahim DO Unavailable Encounter Details Date Type Department Care Team (Late Contact Info) Description 04/30/2022 Transcribe Orders [facility] [address] [place] [address] Paul Ibrahim DO [address] [facility] [address] [place], [place] [id number] [email or web address] Routine general medical examination at a health care facility (Primary Dx) Social History Tobacco Use Types Packs/Day Years Used Date Smoking Tobacco: Never Assessed Comments No Sex and Gender Information Value Date Recorded Sex Assigned at Female 11/19/2023 10:52 AM EDT Legal Sex Female 11:45 PM EST Gender Identity Female 11/19/2023 10:52 AM EDT Sexual Orientation Straight 11/19/2023 10 :52 AM EDT documented as of this encounter Plan of Treatment Upcoming Encounters Date Type Department Care Team (Late Contact Info) Description 01/31/2025 2:40 PM EST Routine [facility] [address] [place], [place] [id number] Dalila Espinal, SHERIF [address] [facility], [address] [place], [place] [id number] [email or web address] 02/14/2025 1:30 PM EST Routine [facility] [address] [place] [address] Dana Florez, SHERIF, MPH [address] [place] [address], [address] [address] 02/21/2025 2:10 PM EST Routine [facility] 22 [place] [address] Lisa Douglas [address] [address] 02/28/2025 2:10 PM EST [facility] 22 [place] [address] Lisa Douglas CN[address] [address] 03/07/2025 2:10 PM EST Routine [facility] [address] [place] [address] Lisa Douglas [address] [address] 03/15/2025 2:10 PM EST Routine [facility] [address] [place] [address] Estefania Lopez CN[address] [address] 03/20/2025 2:20 PM EST Routine [facility] [address] [place] [address] Lisa Douglas CNM [address] [facility], [address] [place] [address] [email or web address] documented as of this encounter Results * (ABNORMAL) Lipid panel (05/04/2022 9:06 AM EST) HDL 65 mg/dL [facility] Comment: Interpretation <40 mg/dL: Low HDL cholesterol (major risk factor for CHD) Greater than or equal to 60 mg/dL: High HDL cholesterol ( negative risk factor for CHD) HDL - cholesterol is affected by a number of factors, e.g. smoking, excerise, hormones, sex and age. CHOLESTEROL 162 0 - 240 mg/dL [facility] TRIGLYCERIDES 84 30 - 160 mg/dL [facility] LDL 80 50 - 129 mg/dL [facility] Comment: LDL levels in terms of risk for coronary heart disease: <100 mg/dL: Optimal 100-129 mg/dL: Near or above optimal 130-159 mg/dL: Borderline high 160-189 mg/dL: High >190 mg/dL: Very High CARDIAC RISK RATIO 2.5(L) 3.3 - 4.4 [facility] Blood 05/04/2022 9:06 AM EST 05/04/2022 9:08 AM EST us Paul Ibrahim DO LAB BLOOD ORDERABLES Final Resul t [facility] [address] [place] [address] * (ABNORMAL) Comprehensive metabolic panel (04/30/2022 12:46 PM EST) SODIUM 138 133 - 146 mmol/L [facility] POTASSIUM 3.8 3.3 - 5.1 mmol/L [facility] CHLORIDE 102 96 - 108 mmol/L [facility] CO2 20(L) 21 - 35 mmol/L [facility] BUN 14 6 - 19 mg/dL [facility] CREATININE 0.70 0.5 - 1.5 mg/dL [facility] GLUCOSE 106(H) 70 - 99 mg/dL [facility] ALBUMIN 4.6 3.9 - 4.8 g/dL [facility] TOTAL PROTEIN 7.7 6.5 - 8.0 g/dL [facility] CALCIUM 9.6 8.4 - 10.3 mg/dL [facility] ALKALINE PHOSPHATASE 55 39 - 117 U/L [facility] TOTAL BILIRUBIN 0.3 0.0 - 1.2 mg/dL [facility] AST 20 0 - 37 U/L [facility] ALT 10 0 - 40 U/L [facility] GLOBULIN 3.1 1 - 4.8 g/dL [facility] EGFR >120 >59 mL/min/1.7 3m2 [facility] Comment:Estimated glomerular filtration rate calculated using the CKD-EPI refit equation. ANION GAP 20 10 - 20 mmol/L [facility] Blood 04/30/2022 12:4 6 PM EST 04/30/2022 12:49 PM EST us Paul Ibrahim DO LAB BLOOD ORDERABLES Final Resul t Performing Organization Address City/State/[facility] Co de Phone Number [address] [address] documented in this encounter Visit Diagnoses Diagnosis Routine general medical examination at a health care facility- Primary documented in this encounter Care Teams House Manager Relationship Specialty Start Date End Date Paul Ibrahim DO [address] [address] [email or web address] PCP - General Internal Medicine 04/30/22 Valery Barbosa MD [address] [address] [email or web address] Insurance Assigned Provider 09/01/20 06/06/22 Paul Ibrahim DO [address] [place] [address] [email or web address] Insurance Assigned Provider 06/06/22 08/15/22 documented as of this encounter Additional Source Comments The information contained in this document represents components of the legal health record. It is not the complete legal health record.[facility]
--- OUTSIDE RECORDS SUMMARY | 2025-01-24 17:20 | XMS_ITS | Encounter Summary ---
Author Organization [facility] Address [address] [facility] [address] [place] [address] Phone Care Team Providers Care Complaint Evaluation Officer Name Role Phone Paul Ibrahim DO Primary Care Provider [phone] Encounter Details Date Type Department Care Team (Late st Contact Info) Description 10/06/2024 Ancillary Orders [facility] [address] [place] [address] Margie Carpenter, SHERIF [address] [facility], [address] [place] [address] [email or web address] Supervision of other normal , antepartum (Primary Dx); History of delivery, currently ; LGSIL on Pap smear of cervix Social History Tobacco Use Types Packs/Day Years Used Date Smoking Tobacco: Former Cigarettes Smokeless Tobacco: Never Alcohol Use Standard Drinks/Week Comments Not Currently 0 (1 standard drink = 0.6 oz pur e alcohol) Education Answer Date Recorded Are you interested in more education? Not on marnie e 07/24/2022 Are you concerned about learning? Not on file 07/24/2022 No 07/24/2022 No 07/24/2022 Digital Access Answer Date Recorded No 08/25/2022 No 08/25/2022 Reliable internet access at home? Not on file 08/25/2022 Device with a working camera? Not on file Estimated Date of Delivery Comme nts Yes 03/18/2025 Based on Ultraso und Sex and Gender Information Value Date Recorded Sex Assigned at Female 11/19/2023 10:52 AM EDT Legal Sex Female 11:45 PM EST Gender Identity Female 11/19/2023 10:52 AM EDT Sexual Orientation Straight 11/19/2023 10 :52 AM EDT documented as of this encounter Plan of Treatment Upcoming Encounters Date Type Department Care Team (Late st Contact Info) Description 01/31/2025 2:40 PM EST Routine [facility] [address] [place] [address] Dalila Espinal, SHERIF [address] [place] [address] 02/14/2025 1:30 PM EST Routine [facility] [address] [place] [address] Dana Florez CNM, MPH [address] [place] [address] 02/21/2025 2:10 PM EST Routine [facility] [address] [place] [address] Lisa Douglas CNM [address] [place] [address] 02/28/2025 2:10 PM EST Routine [facility] [address] [place] [address] Lisa Douglas CNM [address] [place] [address] 03/07/2025 2:10 PM EST Routine [facility] [address] [place] [address] Lisa Douglas CNM [address] [place], [place] [address] [address] 03/15/2025 2:10 PM EST Routine [facility] [address] [place] [address] Estefania Lopez, [facility] [address] [facility], [address] [place] [address] [email or web address] 03/20/2025 2:20 PM EST Routine [facility] [address] [place] [address] Lisa Douglas, [address], [address] [address] documented as of this encounter Results * US OB GREATER THAN OR EQUAL TO 14 WEEKS LIMITED (10/06/2024 2:47 PM EDT) Anatomical Region Laterality Modality Abdomen, Pelvis, Uterus/Adnexa U ltrasound 10/06/2024 3:21 PM EDT Impressions 10/09/2024 10:15 AM EDT Single live IUP with above dating criteria. Narrative 10/09/2024 10:15 AM EDT Procedure: US OB GREATER THAN OR EQUAL TO 14 WEEKS LIMITED 10/06/2024 2:17 PM US Indications: h/o PTD. Comparison: No relevant recent comparisons. Maternal age: 28 years. Technique: Transabdominal scan was performed. M-mode imaging was performed to assess cardiac activity. FINDINGS: number: 1 position: Variable. Placental position: Anterior. Placental grade: 1 Heart Rate: 152.0 bpm Cervix: 4.3 cm Gestational Age by LMP: 16 weeks 5 day(s) Established OSEAS: 16 weeks 5 day(s) Tech Comments: Tena . Cervix = 4.3 cm, long and closed. Active fetus with normal fluid. Procedure Note Ruiz, Edward J, MD - 10/09/2024 Procedure: US OB GREATER THAN OR EQUAL TO 14 WEEKS LIMITED 10/06/2024 2:17PM US Indications: h/o PTD. Comparison: No relevant recent comparisons. Maternal age: 28 years. Technique: Transabdominal scan was performed. M-mode imaging was performedto assess cardiac activity. FINDINGS: number: 1 position: Variable. Placental position: Anterior. Placental grade: 1 Heart Rate: 152.0 bpm Cervix: 4.3 cm Gestational Age by LMP: 16 weeks 5 day(s) Established OSEAS: 16 weeks 5 day(s) Tech Comments: Tena . Cervix = 4.3 cm, long and closed. Active fetus withnormal fluid. IMPRESSION: Single live IUP with above dating criteria. Margie Carpenter CN IMG US OBSTETRIC Fi nal Result documented in this encounter Visit Diagnoses Diagnosis Supervision of other normal , antepartum History of delivery, currently with history of pre-term labor Supervision of other normal , antepartum- Primary History of delivery, currently with history of pre-term labor LGSIL on Pap smear of cervix documented in this encounter Care Teams Complaint Evaluation Officer Relationship Specialty Start Date End Date Paul Ibrahim DO [email or web address] PCP - General Internal Medicine 04/30/22 documented as of this encounter Additional Source Comments The information contained in this document represents components of the legal health record. It is not the complete legal health record.[facility]
--- OUTSIDE RECORDS SUMMARY | 2025-01-24 17:20 | XMS_ITS | Encounter Summary ---
Author Organization [facility] Address [address] [address] Phone Care Team Providers Care Postdoctoral Research Associate Name Role Phone Gianeftali Paul Keane DO Primary Care Provider [phone] Reason for Visit * Reason Onset Date Comments 26/06 OB with belly cramping 3-5 minutes 01/18/20 Encounter Details Date Type Department Care Team (Late st Contact Info) Description 01/17/2025 Telephone [facility] 22 [place] [address] Grace Carver LPN [address] [place] [address] 26/06 OB with belly cramping 3-5 minutes Social History Tobacco Use Types Packs/Day Years [...] AM EDT documented as of this encounter Progress Notes * Boby Clark LPN - 01/23/2025 11:44 AM EDT Letter sent asking pt to contact the office. * Kasey Molina LPN - 01/23/2025 11:39 AM EDT I also called [facility] and was on hold for over half hour and hung up. * Lorne Lomeli - 01/23/2025 10:52 AM EDT Request for records sent 01/23 * Gaby Adler RN - 01/22/2025 1:39 PM EDT LMTCB * Boby Clark LPN - 01/19/2025 11:54 AM EDT Pt no showed for her office appt today. LMTCB. Message to FD team to request [facility] records. * Gaby Adler RN - 01/19/2025 8:35 AM EDT Attempted to contact patient, no answer, LMTCB * Kasey Molina LPN - 01/18/2025 4:48 PM EDT Attempted to reach patient, LMTCB and if not admitted, reminded of OV tomorrow. * Boby Clark LPN - 01/18/2025 4:45 PM EDT Pt has not called us back. She has an appt scheduled with Dalila Lu tomorrow. * Gaby Adler RN - 01/18/2025 8:37 AM EDT LMTCB * Kasey Molina LPN - 01/17/2025 4:12 PM EDT Discussed with patient, she will be going over to [facility] as soon as possible, and will follow up with office re: outcome. Hold for f/u. * Celi Rainey CNM - 01/17/2025 3:54 PM EDT Pt should be evaluated. If she is feeling stronger contractions and feels like it is similar to what she felt when she was in labor with her first child, she should probably go to [facility] (lives in [place]). * Kasey Molina LPN - 01/17/2025 3:43 PM EDT I called patient, states has been hydrating well and pelvic pain,cramping persists the same, believes she may be in labor, also states she had her Grandmother's today and that is why she hadn't call back in today due to other events as well. Advised I will reach out to provider to see if she should go in to [facility] now. Pt is asking to go to [facility]. * Celi Rainey CNM - 01/17/2025 2:03 PM EDT Agree with recommendations * Grace Carver LPN - 01/17/2025 1:40 PM EDT Patient calls and states that about 1.5 hours ago she started to have some pelvic pain. She states that it came on suddenly and unsure what is happening. She denies any bleeding, spotting or LOF. Baby is active. I asked if she had anything to eat or drink today and she replied a yang egg and cheese wrap and some rice with meat She had half of a 16 ounce bottle of water and nothing else. Advised that she drink the rest of the bottle and drink down two more bottles now and see if this helps with pelvic cramping. Patient was advised to call us back at 3 pm to let us know if she is feeling better or to call if symptoms worsen. Increase of pain, bleeding or LOF. Patient voiced understanding.Hold for call back. documented in this encounter Plan of Treatment Upcoming Encounters Date Type Department Care Team (Late st Contact Info) Description 01/31/2025 2:40 PM EST Routine [facility] 22 [place] [address] Dalila Espinal, SHERIF [address] [place] [address] 02/14/2025 1:30 PM EST Routine [facility] 22 [place] [address] Dana Florez, SHERIF, MPH [address] [place] [address], [address] [address] 02/21/2025 2:10 PM EST Routine [facility] 22 [place] [address] Lisa Douglas CNM [address] [place] [address] 02/28/2025 2:10 PM EST Routine [facility] 22 [place] [address] Lisa Douglas CNM [address] [place] [address] 03/07/2025 2:10 PM EST Routine [facility] [address] [place] [address] Lisa Douglas CNM [address] [place] [address] 03/15/2025 2:10 PM EST Routine [facility] [address] [place] [address] Estefania Lopez, CN[address] [place] [address] [email or web address] 03/20/2025 2:20 PM EST Routine [facility] [place] [address] Lisa Douglas, [facility] 22 [facility], [address] [address] [email or web address] documented as of this encounter Visit Diagnoses Not on filedocumented in this encounter Care Teams Postdoctoral Research Associate Relationship Specialty Start Date End Date Paul Ibrahim DO [email or web address] PCP - General Internal Medicine 04/30/22 documented as of this encounter Additional Source Comments The information contained in this document represents components of the legal health record. It is not the complete legal health record.[facility]
--- OUTSIDE RECORDS SUMMARY | 2025-01-24 17:20 | XMS_ITS | Encounter Summary ---
Author Organization [facility] Address [address] [place] [address] Phone Care Team Providers Care Mining Analyst Name Role Phone Unavailable Primary Care Provider Unavailabl e Encounter Details Date Type Department Care Team ([facility] st Contact Info) Description 11/12/2016 Conversion Encounter [facility] - [address] [address] Social History Tobacco Use Types Packs/Day Years [...]
--- OUTSIDE RECORDS SUMMARY | 2025-01-24 17:20 | XMS_ITS | Encounter Summary ---
Author Organization [facility] Address [address] [facility] [address] [place] [address] Phone Care Team Providers Care Astrophysics Teacher Name Role Phone Paul Ibrahim DO Primary Care Provider Encounter Details Date Type Department Care Team (Late st Contact Info) Description 11/20/2024 Ancillary Orders [facility] [address] [place] [address] Margie Carpenter, SHERIF 22 [facility], [address] [place] [address] [email or web address] Supervision of other normal , antepartum (Primary [...] Description 01/31/2025 2:40 PM EST Routine [facility] [address] [place] [address] Dalila Espinla, SHERIF [address] [place] [address] 02/14/2025 1:30 PM EST Routine [facility] [address] [place] [address] Dana Florez CNM, MPH [address] [place] [address] 02/21/2025 2:10 PM EST Routine [facility] [address] [place] [address] Lisa Douglas CNM [address] [place] [address] 02/28/2025 2:10 PM EST Routine [facility] [address] [place] [address] Lisa Douglas CNM [address] [place] [address] 03/07/2025 2:10 PM EST Routine [facility] [address] [place] [address] Lisa Douglas CNM [address] [place], [place] [address], [place] [address] [email or web address] 03/15/2025 2:10 PM EST Routine [facility] [address] [place] [address] Estefania Lopez, [facility] 22 [facility], [address] [place] [address] [email or web address] 03/20/2025 2:20 PM EST Routine [facility] [address] [place] [address] Lisa Douglas, [address], [address] [address] documented as of this encounter Results * US OB GREATER THAN OR EQUAL TO 14 WEEKS LIMITED (11/20/2024 3:30 PM EDT) Anatomical Region Laterality Modality Abdomen, Pelvis, Uterus/Adnexa U ltrasound 11/20/2024 3:31 PM EDT Impressions 11/22/2024 10:38 AM EDT Visualized anatomy is unremarkable. The cervix measures 3.4 cm, measured abdominally. Narrative 11/22/2024 10:38 AM EDT Procedure: US OB GREATER THAN OR EQUAL TO 14 WEEKS LIMITED 11/20/2024 2:49 PM US Indications: H/o PTD. Comparison: No relevant recent comparisons. Maternal age: 29 years. Technique: Transabdominal scan was performed. Color Doppler and M-mode imaging was performed to assess vascularity. FINDINGS: number: 1 position: Vertex Placental position: anterior Placental grade: 1 Heart Rate: 160.0 bpm Cervix: 3.4 cm Reported LMP: 06/11/2024 Gestational Age by LMP: 23 weeks 1 day(s) Established OSEAS: 03/18/2025 Limited Assessment: The stomach, kidneys, urinary bladder and four-chamber heart were evaluated and normal. Tech Comments: Tena . Active fetus with normal fluid. Cervix measures 3.4 cm. Procedure Note Jarrod Kee MD - 11/22/2024 Procedure: US OB GREATER THAN OR EQUAL TO 14 WEEKS LIMITED 11/20/2024 2:49PM US Indications: H/o PTD. Comparison: No relevant recent comparisons. Maternal age: 29 years. Technique: Transabdominal scan was performed. Color Doppler and M-modeimaging was performed to assess vascularity. FINDINGS: number: 1 position: Vertex Placental position: anterior Placental grade: 1 Heart Rate: 160.0 bpm Cervix: 3.4 cm Reported LMP: 06/11/2024 Gestational Age by LMP: 23 weeks 1 day(s) Established OSEAS: 03/18/2025 Limited Assessment: The stomach, kidneys, urinary bladder andfour- chamber heart were evaluated and normal. Tech Comments: Tena . Active fetus with normal fluid. Cervix measures 3.4cm. IMPRESSION: Visualized anatomy is unremarkable. The cervix measures 3.4 cm, measuredabdominally. Margie Carpenter CN IMG US OBSTETRIC Fi nal Result documented in this encounter Visit Diagnoses Diagnosis Supervision of other normal , antepartum History of delivery, currently with history of pre-term labor Supervision of other normal , antepartum- Primary History of delivery, currently with history of pre-term labor LGSIL on Pap smear of cervix documented in this encounter Care Teams Astrophysics Teacher Relationship Specialty Start Date End Date Paul Ibrahim DO [email or web address] PCP - General Internal Medicine 04/30/22 documented as of this encounter Additional Source Comments The information contained in this document represents components of the legal health record. It is not the complete legal health record.[facility]
--- OUTSIDE RECORDS SUMMARY | 2025-01-24 17:20 | XMS_ITS | Encounter Summary ---
Author Organization [facility] Address [address] [place] [address] Phone Care Team Providers Care Fittings Tightener Name Role Phone Unavailable Primary Care Provider Unavailabl e Encounter Details Date Type Department Care Team (Late st Contact Info) Description 01/20/2010 Documentation [facility] [place] [address] Family Medicine, Physician [address] [place] [phone] Social History Tobacco Use Types Packs/Day Years [...]
--- OUTSIDE RECORDS SUMMARY | 2025-01-24 17:20 | XMS_ITS | Clinical Summary ---
Author Organization [facility] Address [address] [address] Phone Care Team Providers Care Machine Hamper Maker Name Role Phone Paul Ibrahim DO Primary Care Provider [phone] Allergies No known active allergies Medications vitamin with Ca-Iron-FA ( PLUS) 27 mg iron- 1 mg Tab tablet Take 1 tablet by mouth daily. 90 tablet 3 10/03/2024 Active Active Problems Problem Noted Date Diagnosed Date Maternal varicella, non-immune 11/03/2024 Overview (11/03/2024): Offer varivax PP History of delivery, currently 10/03/2024 Overview (10/03/2024): PPROM at 36w5d H/o PTL/PPROM Serial (Q 2 week) cervical length 16 - 24 wks. - Immediate referral to MFM if < or = 2.5 cm - If 2.6 - 2.9 cm, initiate weekly measurement Betamethasone 24 - 36.6 wks if delivery anticipated within 2 weeks Assessment & Plan (10/03/2024 2:31 PM EDT): CL ultrasounds ordered. Supervision of other normal , antepartu m 08/23/2024 Overview (01/05/2025): Last pap we have for pt is 2019 LSIL - pt clarified on 12/04/24 that Pap from 2022 was at [facility], a new FRED was signed - check at n.v. CNM Group PN care? No screening Expanded carrier panel ( [place] [facility] )neg & cfDNA low risk Baby ASA? NI Rh Pos GC/Chlam neg PAP per pt 2022 Flu declines COVID-19 declines Hgb * GTT * Repeat RPR * Tdap declines EPDS * PPBC * GBS * Infant Feeding Plan Breast Assessment & Plan (01/05/2025 12:13 PM EDT): Tamra is tearful today--her grandma yesterday. Baby is active, denies vb, lof, ctxs Feels unable to complete labs today but plans to in the next week Declines tdap, covid vaccines Bp low today 82/48, pt is asymptomatic. [place]IVIDAD 2 wks Assessment & Plan (12/04/2024 12:04 PM EDT): Tamra is doing well, can't believe she is almost in the third trimester. She is so excited to see the RNs she worked with last time - remembers Braeden and Ella well. [facility] smear results [facility] not [facility] at [facility] - pt clarifies it was at [facility] in [place], not , and will sign another FRED. Discussed flu vaccine and reviewed rationale, she declines. Discussed GTT/CBC/RPR at time of n.v. LGSIL on Pap smear of cervix 05/18/2020 Overview (08/23/2024): NIL 2022 at [facility], next pap due 2025 Assessment & Plan (10/03/2024 5:49 PM EDT): Patient reports she had [facility] at [facility] recently, will have her sign FRED to obtain result. Estimated Date of Delivery Comme nts Yes 03/18/2025 Based on Ultraso und Resolved Problems Problem Noted Date Diagnosed Date Resolved Date Encounter for initial prescr iption of injectable contraceptive 05/21/2020 08/23/2024 Overview (05/21/2020): Depo given 05/21/20 care following vaginal delivery 05/19/2020 08/23/2024 care and examinat ion immediately after delivery 05/18/2020 08/23/2024 Premature labor with rupture of membranes 05/18/2020 05/18/2020 GBS (group B Streptococcus c arrier), +RV culture, currently 05/18/2020 05/18/2020 Overview (05/18/2020): PCN in labor Encounters Date Type Department Care Team Description 01/17/2025 Telephone [facility] [address] [place] [address] Grace Carver, BOX GLUER 31/3 OB with belly cramping 3-5 minutes 01/05/2025 10:50 AM EDT Routine [facility] [address] [place] [address] [place] [address] Estefania Lopez CNM [place]: 29w5d 12/15/2024 Telephone [facility] [address] [place] [address] [place] [address] Lexy Spann MD Appointment 12/04/2024 10:30 AM EDT [facility] [address] [place] [address] [place] [address] Dalila Lu CNM GA: 25w1d 11/20/2024 2:48 PM EDT - 11/20/2024 11:59 PM EDT Hospital Encounter [facility] [place] Ultrasound [address] [place] [address] Margie Carpenter CNM Discharge Disposition: Home or Self Care 11/20/2024 Ancillary Orders [facility] [address] [place] [address] [place] [address] Margie Carpenter CNM Supervision of other normal , antepartum (Primary Dx); History of delivery, currently ; LGSIL on Pap smear of cervix 11/16/2024 Telephone [facility] [address] [place] [address] [place] [address] Boby Clark LPN OSEAS letter 11/16/2024 Telephone [facility] [address] [place] [address] Unknown, Unknown, MD Appointment 11/09/2024 Telephone [facility] [address] [place] [address] Boby Clark LPN [facility] results 11/07/2024 Telephone [facility] [address] [place] [address] Sherry Salcido RN Test Results ([facility]) 10/31/2024 2:02 PM EDT - 10/31/2024 11:59 PM EDT Hospital Encounter [facility] [place], OB [address] [place] [address] Margie Carpenter CNM Discharge Disposition: Home or Self Care 10/31/2024 1:36 PM EDT - 10/31/2024 2:01 PM EDT Hospital Encounter [facility] [address] [place] [address] Dana Florez, SHERIF, MPH Discharge Disposition: Home or Self Care 10/25/2024 Telephone [facility] [address] [place] [address] Margie Carpenter CNM schedule OB w/YANETHM (schedule OB w/CNM) from Last 3 Months Family History Relation Status Comments Daughter Alive Father Alive Mother Alive Social History Tobacco Use Types Packs/Day Years Used Date Smoking Tobacco: Former Cigarettes Smokeless Tobacco: Never Tobacco Cessation:Counseling Given: Not Answered Alcohol Use Standard Drinks/Week Comments Not Currently [...] Orientation Straight 11/19/2023 10 :52 AM EDT Last Filed Vital Signs Vital Sign Reading Time Taken Comments Blood Pressure 82/48 01/05/2025 11:36 AM EDT Pulse 76 05/20/2020 3:44 PM EST Temperature 36.9 C (98.4 F) 05/20/2020 3:44 PM EST Respiratory Rate 16 05/20/2020 3:44 PM EST Oxygen Saturation 99% 05/20/2020 3:44 PM EST Inhaled Oxygen Concentration - - Weight 52.4 kg (115 lb 9.6 oz) 01/05/2025 11:36 AM EDT Height 157.5 cm (5' 2.01 ) 05/18/2020 12:[address] Body Mass Index 21.14 05/18/2020 12:01 AM EST Plan of Treatment Upcoming Encounters Date Type Department Care Team (Late st Contact Info) Description 01/31/2025 2:40 PM EST [facility] [address] [place] [address] [place] [address] Dalila Espinal CNM [address] [place] [address] 02/14/2025 1:30 PM EST [facility] [address] [place] [address] [place] [address] Dana Florez CNM, MPH [address] [place] [address] 02/21/2025 2:10 PM EST Rout[facility] [address] [place] [address] [place] [address] Lisa Douglas, [address] [address] 02/28/2025 2:10 PM EST [facility] [address] [place] [address] Lisa Douglas, [address] [address] 03/07/2025 2:10 PM EST [facility] [address] [place] [address] Lisa Douglas, [address] [address] 03/15/2025 2:10 PM EST [facility] [address] [place] [address] Estefania Lopez, [address] [address] 03/20/2025 2:20 PM EST Routine [facility] [address] [place] [address] Lisa Douglas, [address] [address] Health Maintenance Due Date Last Done Comments DEPRESSION SCREENING 2008 SMOKING Hx and SMOKELESS TOBACCO SCREENING 2009 HEPATITIS A VACCINES (2 of 2 - 2-dose series) 10/08/2015 04/09/2015 MENINGOCOCCAL VACCINES (B) ( 2 of 2 - Trumenba SCDM 2-dose series) 05/21/2018 11/18/2017 PAP SMEAR 11/26/2022 11/27/2019 Adult Td,Tdap Booster 11/22/2023 11/21/2013 , 01/09/2010 INFLUENZA VACCINE (#1) 2024 COVID-19 VACCINE (3 - 2024-2 6 season) 2024 11/10/2021, 10/27/2020 RSV VACCINE (1 - Risk pregna nt 1-dose series) 01/21/2025 MENINGOCOCCAL VACCINES (ACWY) Completed 04/09/2015 HEPATITIS C SCREENING Completed 10/31/2024 , 12/11/2021 HIV ONE-TIME SCREENING (18-6 5 YEARS) Completed 10/31/2024 HIB VACCINES Aged Out No longer eligi ble based on patient's age to complete this topic PNEUMOCOCCAL VACCINES (0-49 years) Aged Out No longer eligible b ased on patient's age to complete this topic Medical Devices Not on file Procedures Procedure Name Priority Date/Time Associated Diagnosis Comments CHLAMYDIA TRACHOMATIS AND NEISSERIA GONORRHOEAE NUCLEIC ACID DETECTION Routine 12/04/2024 11:07 AM EDT Supervision of other normal , antepartum US OB GREATER THAN OR EQUAL TO 14 WEEKS LIMITED Routine 11/20/2024 3:30 PM EDT Supervision of other normal , antepartum History of delivery, currently US OB GREATER THAN OR EQUAL TO 14 WEEKS ANATOMICAL COMPLETE SURVEY Routine 10/31/2024 3:05 PM EDT Supervision of other normal , antepartum HC BLOOD TYPING SEROLOGIC ABO Routine 10/31/2024 1:48 PM EDT Supervision of other normal , antepartum MISCELLANEOUS LAB TEST Routine 1:48 PM EDT Supervision of other normal , antepartum MISCELLANEOUS LAB TEST Routine 1:48 PM EDT Supervision of other normal , antepartum CBC Routine 10/31/2024 1:48 PM EDT Supervision of other normal , antepartum SYPHILIS ANTIBODY SCREEN ASSAY Routine 10/31/2024 1:48 PM EDT Supervision of other normal , antepartum RUBELLA ANTIBODY, IGG Routine 10/31/2024 1:48 PM EDT Supervision of other normal , antepartum VARICELLA-ZOSTER (VZV) ANTIBODY, IGG Routine 10/31/2024 1:48 PM EDT Supervision of other normal , antepartum HIV-1/2 ANTIGEN/ANTIBODY Routine 10/31/2024 1:48 PM EDT Supervision of other normal , antepartum HEPATITIS B SURFACE ANTIGEN Routine 10/31/2024 1:48 PM EDT Supervision of other normal , antepartum Need for hepatitis B screening test HEPATITIS C ANTIBODY, QUALITATIVE Routine 10/31/2024 1:48 PM EDT Supervision of other normal , antepartum PAP TEST Routine 11/27/2019 from Last 3 Months or Most Recently Relevant to Health Maintenance Results * Chlamydia trachomatis and Neisseria gonorrhoeae Nucleic Acid Amplification (12/04/2024 11:07 AM EDT) CHLAMYDIA TRACHOMATIS Not Detected Not Detected [facility] NEISERIA GONORRHOEAE Not Detected Not Detected [facility] SPECIMEN TYPE URINE [facility] Urine (Urine) 12/04/2024 11: 07 AM EDT 12/04/2024 3:35 PM EDT us Dalila Lu CNM NON CULTURE MICROBIOLOGY Final R esult [facility] [address] [place] [address] * US OB GREATER THAN OR EQUAL [...] CN IMG US OBSTETRIC Fi nal Result * US OB GREATER THAN OR EQUAL TO 14 WEEKS ANATOMICAL COMPLETE SURVEY (10/31/2024 3:05 PM EDT) Anatomical Region Laterality Modality Abdomen, Pelvis, Uterus/Adnexa U ltrasound 10/31/2024 3:29 PM EDT Impressions 10/31/2024 5:32 PM EDT 1. Single live IUP with above dating criteria. 2. The anatomic survey is grossly normal. Narrative 10/31/2024 5:32 PM EDT Procedure: US OB GREATER THAN OR EQUAL TO 14 WEEKS ANATOMICAL COMPLETE SURVEY 10/31/2024 2:26 PM US Indications: Anatomic Survey. Comparison: No relevant recent comparisons. Maternal age: 28 years. Technique: Transabdominal scan was performed. Color Doppler and M-mode imaging was performed to assess vascularity. FINDINGS: number: 1 position: Vertex. Placental position: Anterior. Placental Grade: 1 Placental appearance: Normal. Amniotic fluid assessment: The amniotic fluid is visually within normal limits. FHR: 160.0 bpm Estimated weight (EFW): 341.5 grams- 12 oz. 42.9% based on established OSEAS Hadlock. Reported LMP: [id number] Gestational Age by LMP: 20 weeks 2 day(s) Ultrasound EGA: 20 weeks 3 day(s) Ultrasound OSEAS: [id number] Established OSEAS: 20 weeks 2 day(s) Biometry: BPD: 4.74 cm, consistent with 20 weeks 3 day(s) and 52% Head Circumference: 17.88 cm, consistent with 20 weeks 3 day(s) and 44% Abdominal Circumference: 15.01 cm, consistent with 20 weeks 2 day(s) and 43% Femur Length: 3.27 cm, consistent with 20 weeks 2 day(s) and 39% Humerus: 3.04 cm, consistent with 20 weeks 1 day(s) and 44% Cerebellum: 2.17 cm, consistent with 21 weeks 6 day(s) Lat Vent: 0.44 cm Cist Ma.20 cm HC/AC: 1.19 FL/BPD: 0.69 FL/AC: 0.22 Documented anatomy: Head/Neck: Lateral ventricles - Seen Choroid plexus - Seen Midline falx - Seen Cavum septi pellucidi - Seen Cerebellum - Seen Cisterna magna - Seen Nuchal fold - Seen Face: Orbit/Lenses - Seen Upper lip - Seen Profile - Seen Chest: Four-chamber view - Seen Left ventricular outflow tract - Seen Right ventricular outflow tract - Seen Aortic Arch - Seen Ductal Arch - Seen 3 Vessel View - Seen 3 VTV - Seen Abdomen: Stomach - Seen Diaphragm - Seen Kidneys - Seen Urinary bladder - Seen Abdominal cord insertion - Seen Three-vessel cord - Seen Placental Cord Insertion - Seen Limbs: Right arm and hand present - Seen Left arm and hand present - Seen Right leg and foot present - Seen Left leg and foot present - Seen Spine (in sagittal and transverse plane): Cervical - Seen Thoracic - Seen Lumbar - Seen Sacral - Seen Motion: Normal motion was observed. Cervix: 3.42 cm Uterine myometrium: Grossly normal Right ovary: Unremarkable Left ovary: Unremarkable Tech Comments: Tena . EFW = 43%. anatomy appears grossly normal. Active fetus. Normal fluid. Procedure Note Bismark Ruiz MD - 10/31/2024 Procedure: US OB GREATER THAN OR EQUAL TO 14 WEEKS ANATOMICAL COMPLETESURVEY 10/31/2024 2:26 PM US Indications: Anatomic Survey. Comparison: No relevant recent comparisons. Maternal age: 28 years. Technique: Transabdominal scan was performed. Color Doppler and M-modeimaging was performed to assess vascularity. FINDINGS: number: 1 position: Vertex. Placental position: Anterior. Placental Grade: 1 Placental appearance: Normal. Amniotic fluid assessment: The amniotic fluid is visually within normallimits. FHR: 160.0 bpm Estimated weight (EFW): 341.5 grams- 12 oz. 42.9% based on established OSEAS [place]. Reported LMP: [id number] Gestational Age by LMP: 20 weeks 2 day(s) Ultrasound EGA: 20 weeks 3 day(s) Ultrasound OSEAS: [id number] Established OSEAS: 20 weeks 2 day(s) Biometry: BPD: 4.74 cm, consistent with 20 weeks 3 day(s) and 52% Head Circumference: 17.88 cm, consistent with 20 weeks 3 day(s) and 44% Abdominal Circumference: 15.01 cm, consistent with 20 weeks 2 day(s) and43% Femur Length: 3.27 cm, consistent with 20 weeks 2 day(s) and 39% Humerus: 3.04 cm, consistent with 20 weeks 1 day(s) and 44% Cerebellum: 2.17 cm, consistent with 21 weeks 6 day(s) Lat Vent: 0.44 cm Cist Ma.20 cm HC/AC: 1.19 FL/BPD: 0.69 FL/AC: 0.22 Documented anatomy: Head/Neck: Lateral ventricles - Seen Choroid plexus - Seen Midline falx - Seen Cavum septi pellucidi - Seen Cerebellum - Seen Cisterna magna - Seen Nuchal fold - Seen Face: Orbit/Lenses - Seen Upper lip - Seen Profile - Seen Chest: Four-chamber view - Seen Left ventricular outflow tract - Seen Right ventricular outflow tract - Seen Aortic Arch - Seen Ductal Arch - Seen 3 Vessel View - Seen 3 VTV - Seen Abdomen: Stomach - Seen Diaphragm - Seen Kidneys - Seen Urinary bladder - Seen Abdominal cord insertion - Seen Three-vessel cord - Seen Placental Cord Insertion - Seen Limbs: Right arm and hand present - Seen Left arm and hand present - Seen Right leg and foot present - Seen Left leg and foot present - Seen Spine (in sagittal and transverse plane): Cervical - Seen Thoracic - Seen Lumbar - Seen Sacral - Seen Motion: Normal motion was observed. Cervix: 3.42 cm Uterine myometrium: Grossly normal Right ovary: Unremarkable Left ovary: Unremarkable Tech Comments: Tena . EFW = 43%. anatomy appears grossly normal.Active fetus. Normal fluid. IMPRESSION: 1. Single live IUP with above dating criteria. 2. The anatomic survey is grossly normal. Margie WOLFE IMG US OBSTETRIC Fi nal Result * Miscellaneous lab test (10/31/2024 1:48 PM EDT) Only the most recent of2 resultswithin the time period is included. TESTS REQUESTED [facility] CELL FREE DNA (PREQUEL) [facility] SPECIMEN/TUBE TYPE MISCELLANEOUS [facility] REQUEST RECEIVED Request received. A separate order for the requested test will be generated by the laboratory. [facility] Blood 10/31/2024 1:48 PM EDT 10/31/2024 2:06 PM EDT Dana Florez CNM, MPH LAB BLOOD ORDERABLES F inal Result Performing Organization Address [facility]/ZIP Co de Phone Number [address] [address] * Screen (10/31/2024 1:48 PM EDT) ABO/Rh A Positive [facility] Antibody Screen Negative [facility] Resulting Agency [facility] Blood 10/31/2024 1:48 PM EDT 10/31/2024 2:04 PM EDT Dana Florez CNM, MPH BLOOD BANK TEST ORDERA BLES Final Result Performing Organization Address [facility] Co de Phone Number [address] [address] * Rubella antibody, IgG (10/31/2024 1:48 PM EDT) Rubella Ab, IgG Positive Positive [facility] Blood (Blood) 10/31/2024 1:4 8 PM EDT 10/31/2024 2:06 PM EDT Dana Florez CNM, MPH NON CULTURE MICROBIOLO GY Final Result Performing Organization Address [facility] Co de Phone Number [address] [address] * (ABNORMAL) Varicella-zoster (VZV) antibody, IgG (10/31/2024 1:48 PM EDT) Varicella Ab(s) Negative(A ) Positive [facility] Blood (Blood) 10/31/2024 1:4 8 PM EDT 10/31/2024 2:06 PM EDT Dana Florez CNM, MPH NON CULTURE MICROBIOLO GY Final Result Performing Organization Address [facility]/ZIP Co de Phone Number [address] [address] * HIV-1/2 antigen/antibody (10/31/2024 1:48 PM EDT) HIV-1/2 Antigen/Antibo dy NON-REACTI VE NON-REACTI VE [facility] Blood 10/31/2024 1:48 PM EDT 10/31/2024 2:04 PM EDT Dana Florez CNM, MPH LAB BLOOD ORDERABLES F inal Result Performing Organization Address [facility]/ZIP Co de Phone Number [address] [address] * Hepatitis C antibody, qualitative (10/31/2024 1:48 PM EDT) HCV NON-REACTIV E NON-REACTI VE [facility] Blood 10/31/2024 1:48 PM EDT 10/31/2024 2:05 PM EDT Dana Florez CNM, MPH LAB BLOOD ORDERABLES F inal Result Performing Organization Address [facility]/ZIP Co de Phone Number [address] [address] * Syphilis antibody screen (10/31/2024 1:48 PM EDT) RPR NON-REACTIV E NON-REACTI VE [facility] Blood 10/31/2024 1:48 PM EDT 10/31/2024 2:05 PM EDT us Dana Florez CNM, MPH LAB BLOOD ORDERABLES F inal Result [address] [address] * Hepatitis B surface antigen (10/31/2024 1:48 PM EDT) HBV SURFACE ANTIGEN NON-REACTI VE NON-REACTI VE [facility] Blood 10/31/2024 1:48 PM EDT 10/31/2024 2:05 PM EDT Dana Florez CNM, MPH LAB BLOOD ORDERABLES F inal Result Performing Organization Address [facility] Co de Phone Number [address] [address] * (ABNORMAL) CBC (10/31/2024 1:48 PM EDT) WBC 7.84 4.00 - 11.00 K/uL [facility] RBC 3.71(L) 4.00 - 5.20 M/uL [facility] HGB 11.6(L) 12.0 - 16.0 g/dL [facility] HCT 34.4(L) 36.0 - 46.0 % [facility] PLT 269 150 - 450 K/uL [facility] MCV 92.7 80.0 - 100.0 fL [facility] MCH 31.3(H) 27.0 - 31.0 pg [facility] MCHC 33.7 32.0 - 36.0 g/dL [facility] RDW 12.0 11.5 - 14.5 % [facility] MPV 10.0 8.4 - 12.0 fL [facility] NRBC 0.00 0.00 /100 WBCs [facility] ABSOLUTE NRBC 0.00 0.00 K/uL [facility] Blood 10/31/2024 1:4 8 PM EDT 10/31/2024 2:05 PM EDT us Dana Floerz CNM, MPH LAB BLOOD ORDERABLES F inal Result [address] [address] * Pap Smear (11/27/2019) PAP - EXTERNAL LGSIL us Historical Provider MD CYTOLOGY ORDERABLES Final Result from Last 3 Months or Most Recently Relevant to Health Maintenance Insurance [place] Advance Directives For more information, please contact: [phone] (9AM - 5PM [facility], Wednesday-Wednesday) * Full Code (Latest Code Status on File) Date Activated Date Inactivated Comments 05/18/2020 2:41 AM Question Answer Comments Code Status Confirmed With: Patient * Full Code Date Activated Date Inactivated Comments 05/18/2020 12:57 AM 05/18/2020 2:41 AM Question Answer Comments Code Status Confirmed With: Patient Care Teams Machine Hamper Maker Relationship Specialty Start Date End Date Paul Ibrahim DO [email or web address] PCP - General Internal Medicine 04/30/22 Additional Source Comments The information contained in this document represents components of the legal health record. It is not the complete legal health record.Formerly [facility]
== END 2025-01-24 14:11 | disposition short-term general hospital (02) ==
PROVIDERS: Student in an Organized Health Care Education/Training Program; Emergency Provider Emergency Medicine; PCP Internal Medicine
DX: O26.893 Other specified pregnancy related conditions, third trimester (principal); R10.9 Unspecified abdominal pain; Z3A.32 32 weeks gestation of pregnancy; R05.9 Cough, unspecified; R06.02 Shortness of breath; R09.81 Nasal congestion; Z03.818 Encounter for observation for suspected exposure to other biological agents ruled out
CPT/HCPCS: 87502; 87635; 99285